=== PATIENT | male | born 1960 | race Caucasian/White ===

== ENCOUNTER 2019-04-16 06:06 | Inpatient (IN) | payer SELFPAY ==
[~2019-04-16] VITALS: Ht 175.3 cm; Wt 68.0 kg
[2019-04-16] VITALS (23 sets, daily range): BP systolic 62–130; BP diastolic 33–112
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
[2019-04-16 06:18] LABS: BASOPHILS # (AUTO) 0.1 10^3/uL (0.0-0.1); BASOPHILS % (AUTO) 1 % (0-10); EOSINOPHILS # (AUTO) 0.1 10^3/uL (0.0-0.3); EOSINOPHILS % (AUTO) 1 % (0-10); HEMATOCRIT 37 % (40-54); HEMOGLOBIN 12.2 G/DL (13.3-17.7); LYMPHOCYTES # (AUTO) 1.2 X 10^3 (1.0-4.0); LYMPHOCYTES % (AUTO) 13 % (12-44); MEAN CORPUSCULAR HEMOGLOBIN 30 PG (25-34); MEAN CORPUSCULAR HGB CONC 33 G/DL (32-36); MEAN CORPUSCULAR VOLUME 91 FL (80-99); MEAN PLATELET VOLUME 9.9 FL (7.4-10.4); MONOCYTES # (AUTO) 0.6 X 10^3 (0.0-1.0); MONOCYTES % (AUTO) 7 % (0-12); NEUTROPHILS # (AUTO) 6.9 X 10^3 (1.8-7.8); NEUTROPHILS % (AUTO) 78 % (42-75); PLATELET COUNT 295 10^3/uL (130-400); WHITE BLOOD COUNT 8.8 10^3/uL (4.3-11.0)
[2019-04-16] MEDS ORDERED: NS IV 1000 ML 1,000 ML IV ONE ×2 (06:23→17:30)
[2019-04-16] MEDS ORDERED: KETOROLAC 30 MG/ML VIAL IVP STA (06:34)
[2019-04-16 06:38] LABS: ALANINE AMINOTRANSFERASE 17 U/L (0-55); ALBUMIN 4.1 GM/DL (3.2-4.5); ALKALINE PHOSPHATASE 58 U/L (40-136); BILIRUBIN,TOTAL 0.3 MG/DL (0.1-1.0); BUN/CREATININE RATIO 12; CALCIUM 9.2 MG/DL (8.5-10.1); CARBON DIOXIDE 21 MMOL/L (21-32); CHLORIDE 110 MMOL/L (98-107); GFR ESTIMATED > 60; GLUCOSE 122 MG/DL (70-105); LIPASE 25 U/L (8-78); POTASSIUM 4.3 MMOL/L (3.6-5.0); SODIUM 140 MMOL/L (135-145); TOTAL PROTEIN 6.8 GM/DL (6.4-8.2)
[2019-04-16] MEDS ORDERED: NITROGLYCERIN 0.4 MG SL TABS BTL 25'S SL PRN (06:45)
[2019-04-16 06:57] LABS: PROTHROMBIN TIME PATIENT 13.3 SEC (12.2-14.7)
--- NOTE | 2019-04-16 07:05 | Diagnostic Imaging Report ---
INDICATION: Chest pain COMPARISON: None available TECHNIQUE: Single frontal radiograph of the chest dated 04/16/2019. FINDINGS: The cardiac silhouette is within normal limits in size. No significant pulmonary vascular congestion. A 6-7 mm rounded nodular density is identified overlying the right lung base. The lungs otherwise appear clear. No pleural effusion. No pneumothorax. No acute osseous abnormality. IMPRESSION: No acute cardiopulmonary abnormality. 6-7 mm nodular density overlying the right lung base. This is of uncertain etiology. This could relate to a nipple shadow, though could also relate to a pulmonary nodule or superimposition of shadows. Recommend nonemergent repeat radiographs of the chest with nipple markers in place for further evaluation. Dictated by: Dictated on workstation # [id number]
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
--- NOTE | 2019-04-16 07:14 | NUR ---
report to bruna lassiter. she knows bolus going and still need ua.
[2019-04-16 08:55] LABS: BILIRUBIN,URINE NEGATIVE (NEGATIVE); CLARITY,URINE CLEAR; COLOR,URINE YELLOW; GLUCOSE, URINE (UA) NEGATIVE (NEGATIVE); KETONES,URINE NEGATIVE (NEGATIVE); LEUKOCYTE ESTERASE ,URINE NEGATIVE (NEGATIVE); NITRITE,URINE NEGATIVE (NEGATIVE); PH,URINE 7 (5-9); PROTEIN,URINE NEGATIVE (NEGATIVE); UROBILINOGEN,URINE NORMAL (NORMAL)
[2019-04-16 09:12] LABS: BACTERIA,URINE NEGATIVE /HPF
[2019-04-16 09:13] LABS: AMPHETAMINE SCREEN, URINE NEGATIVE (NEGATIVE); BENZODIAZEPINES SCREEN URINE NEGATIVE (NEGATIVE); COCAINE SCREEN URINE NEGATIVE (NEGATIVE); METHAMPHETAMINE SCREEN URINE S NEGATIVE (NEGATIVE)
[2019-04-16 09:14] LABS: BARBITURATE SCREEN URINE NEGATIVE (NEGATIVE); CANNABINOID SCREEN, URINE POSITIVE (NEGATIVE); METHADONE STAT NEGATIVE (NEGATIVE); OPIATE SCREEN URINE NEGATIVE (NEGATIVE); OXYCODONE STAT NEGATIVE (NEGATIVE); PROPOXYPHENE STAT NEGATIVE (NEGATIVE); TRICYCLIC ANTIDEPRESSANTS SCRE NEGATIVE (NEGATIVE)
[2019-04-16] MEDS ORDERED: ASPIRIN 81 MG CHEW (CHILDREN'S ASA) PO ONE (10:15)
[2019-04-16] MEDS ORDERED: LIDOCAINE 1% INJ 20 ML 20 ML VIAL ONE (10:44)
[2019-04-16] MEDS ORDERED: HEParin (CATH LAB) 2,000 ML IV ONE (10:44)
--- NOTE | 2019-04-16 10:52 | Cardiology History & Physical ---
HPI-Cardiology Cardiology Consultation Date of Consultation 04/16/19 Date of Admission Time Seen by Provider: 10:50 Indication: chest pain HPI 58 years old gentleman with history of recurrent chest pain, had a normal stress test in November in [place], was in his usual state of health until this morning when he started having chest pain described it as dull achiness in the retrost ernal area. Came into the emergency room, initial workup was negative. Repeat troponin was elevated. He is currently chest pain-free. No palpitation. No syncope or near syncopal episodes. No claudications. PMH-Cardiology Surgeries Yes (heart Catheter) Respiratory No Cardiovascular Yes Neurological No Genitourinary No Gastrointestinal No Musculoskeletal No Endocrine No Cancer No Did You Recieve Any Treatments: No Social History Patient Social History Marrital Status: Employed/Student: unemployed Alcohol Use: Denies Use Recreational Drug Use: Yes (" marijuana") Recent Foreign Travel: No Contact w/other who traveled: No Recent Infectious Disease Expo: No Family Hx Significant Family History: Heart Disease (both mother and father) Other Noncontributory ROS-Cardiology Review of Systems General: No Chills, No Night Sweats, No Fatigue, No Malaise, No Appetite HEENT: No Head Aches, No Visual Changes, No Eye Pain, No Ear Pain, No Dysphasia, No Sinus Congestion, No Post Nasal Drip, No Sore Throat Pulmonary: No Dyspnea, No Cough, No Pleuritic Chest Pain Cardiovascular: Chest Pain; No: Palpitations, Orthopnea, Paroxysmal Noc. Dyspnea, Edema, Lt Headedness Gastrointestinal: No: Nausea, Vomiting, Abdominal Pain, Diarrhea, Constipation, Melena, Hematochezia Genitourinary: No Dysuria, No Frequency, No Incontinence, No Hematuria, No Retention Musculoskeletal: No: neck pain, shoulder pain, arm pain, back pain, hand pain, leg pain, foot pain Neurological: No: Weakness, Numbness, Incoordination, Change in speech, Confusion, Seizures Home Medications & Allergies Allergies: Coded Allergies: No Known Drug Allergies (Unverified , 04/16/19) Home Medication List Reviewed: Yes Exam-Cardiology Vital Signs Vital Signs Date Time Temp Pulse Resp B/P (MAP) Pulse Ox O2 Delivery O2 Flow Rate FiO2 04/16/19 06:10 98.4 104 20 141/91 (108) Exam General Appearance: Alert, Oriented X3, Cooperative, No Acute Distress HEENT: Atraumatic, PERRLA Respiratory: Clear to Auscultation, Normal Air Movement Cardiovascular: Regular Rate, Normal S1, Normal S2, No Murmurs Abdominal: Normal Bowel Sounds, Soft, No Tenderness, No Hepatosplenomegaly, No Masses Extremities: No Clubbing, No Cyanosis, No Edema, Normal Pulses, No Tenderness/Swelling Skin: No Rashes, No Breakdown, No Significant Lesion Neuro: Normal Gait, Normal Speech, Strength at 5/5 X4 Ext, Normal Tone, Sensation Intact Psych/Mental Status: Mental Status NL, Mood NL Results Labs Labs Laboratory Tests 04/16/19 06:05: White Blood Count 8.8, Red Blood Count 4.04L, Hemoglobin 12.2L, Hematocrit 37L, Mean Corpuscular Volume 91, Mean Corpuscular Hemoglobin 30, Mean Corpuscular Hemoglobin Concent 33, Red Cell Distribution Width 14.0, Platelet Count 295, Mean Platelet Volume 9.9, Neutrophils (%) (Auto) 78H, Lymphocytes (%) (Auto) 13, Monocytes (%) (Auto) 7, Eosinophils (%) (Auto) 1, Basophils (%) (Auto) 1, Neutrophils # (Auto) 6.9, Lymphocytes # (Auto) 1.2, Monocytes # (Auto) 0.6, Eosinophils # (Auto) 0.1, Basophils # (Auto) 0.1, Prothrombin Time 13.3, INR Comment 1.0, Activated Partial Thromboplast Time 31, D-Dimer 0.33, Sodium Level 140, Potassium Level 4.3, Chloride Level 110H, Carbon Dioxide Level 21, Anion Gap 9, Blood Urea Nitrogen 12, Creatinine 1.00, Estimat Glomerular Filtration Rate > 60, BUN/Creatinine Ratio 12, Glucose Level 122H, Calcium Level 9.2, Corrected Calcium 9.1, Magnesium Level 3.0H, Total Bilirubin 0.3, Aspartate Amino Transf (AST/SGOT) 27, Alanine Aminotransferase (ALT/SGPT) 17, Alkaline Phosphatase 58, Myoglobin 97.8H, Troponin I < 0.028, Total Protein 6.8, Albumin 4.1, Lipase 25, Serum Alcohol < 10 04/16/19 08:50: Urine Color YELLOW, Urine Clarity CLEAR, Urine pH 7, Urine Specific [place] 1.010L, Urine Protein NEGATIVE, Urine Glucose (UA) NEGATIVE, Urine Ketones NEGATIVE, Urine Nitrite NEGATIVE, Urine Bilirubin NEGATIVE, Urine Urobilinogen NORMAL, Urine Leukocyte Esterase NEGATIVE, Urine RBC (Auto) NEGATIVE, Urine RBC NONE, Urine WBC NONE, Urine Crystals NONE, Urine Bacteria NEGATIVE, Urine Casts NONE, Urine Mucus NEGATIVE, Urine Culture Indicated NO, Urine Opiates Screen NEGATIVE, Urine Oxycodone Screen NEGATIVE, Urine Methadone Screen NEGATIVE, Urine Propoxyphene Screen NEGATIVE, Urine Barbiturates Screen NEGATIVE, Ur Tricyclic Antidepressants Screen NEGATIVE, Urine Phencyclidine Screen NEGATIVE, Urine Amphetamines Screen NEGATIVE, Urine Methamphetamines Screen NEGATIVE, Urine Benzodiazepines Screen NEGATIVE, Urine Cocaine Screen NEGATIVE, Urine Cannabinoids Screen POSITIVEH 04/16/19 09:20: Myoglobin 153.0H, Troponin I 0.327*H, Total Creatine Kinase 153 A/P-Cardiology Admission Diagnosis Unstable angina Non-ST elevation myocardial infarction Coronary artery disease Admission Status: Observation Assessment/Plan Unstable angina, had active chest pain, responded to nitroglycerin, having elevation troponin level. Planning to proceed with cardiac catheterization. Non-ST elevation myocardial infarction, elevation in troponin level. Reporting having a stress test done in November 2018 which was negative. Discussed with him the management per recommended cardiac catheterization possible PTCA Coronary artery disease, planning to proceed with cardiac catheterization next History of marijuana use. Educated on avoiding illicit drug use. History of valvular heart disease. Was on Inderal as a child until he was 21 years old. Clinical Quality Measures AMI/AHF: ASA po Prior to arrival: Yes ALVARO SMYTH MD April 16, 2019 10:52
--- NOTE | 2019-04-16 10:53 | Cardiac Procedure Note-CS/ASA ---
Pre-Procedure Note Pre-Op Procedure Note H&P Reviewed The H&P was reviewed, patient examined and no changes noted. Date H&P Reviewed: April 16, 2019 Time H&P Reviewed: 10:53 Conscious Sedation Pre-Proced Time 10:53 ASA Score 3 For ASA 3 and 4: Consider anesthesia and medical clearance. Also, for patients with a history of failed moderate sedation consider anesthesia. Airway Lungs Heart ASA score ASA 1: a normal healthy patient ASA 2: a patient with a mild systemic disease (mid diabetes, controlled hypertension, obesity x ASA 3: a patient with a severe systemic disease that limits activity (angina, COPD, prior Myocardial infarction) ASA 4: a patient with an incapacitating disease that is a constant threat to life (CHF, renal failure) ASA 5: a moribund patient not expected to survive 24 hrs. (ruptured aneurysm) ASA 6: a declared brain- patient whose organs are being harvested. For emergent operations, add the letter E after the classification Mallampati Classification Grade 3 Sedation Plan Analgesia, Amnesia, Plan communicated to team members, Discussed options with patient/fam, Discussed risks with patient/fam The patient is an appropriate candidate to undergo the planned procedure, sedation, and anesthesia. The patient immediately re-assessed prior to indication. ALVARO SMYTH MD April 16, 2019 10:53
[2019-04-16] MEDS ORDERED: NS IV 1000 ML 1,000 ML ONE (10:56)
[2019-04-16] MEDS ORDERED: NS IV 1000 ML 1,000 ML IV SCH (11:00)
--- NOTE | 2019-04-16 11:05 | NUR ---
[employer] in pt's room for echo.
--- NOTE | 2019-04-16 11:20 | NUR ---
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
[2019-04-16] MEDS ORDERED: fentaNYL INJECTION 100 MCG/2 ML AMP ONE (11:22)
[2019-04-16] MEDS ORDERED: MIDAZOLAM 5 MG/5 ML (VERSED) VIAL ONE (11:22)
[2019-04-16] MEDS ORDERED: HEParin 1000 UNIT/ML (10ML VIAL) FOR BOLUS ONE (11:22)
[2019-04-16] MEDS ORDERED: EPTIFIBATIDE BOLUS 20 ML IV ONE (11:52)
[2019-04-16] MEDS ORDERED: NITRO DRIP 25000 MCG/D5W 250 ML IV ONE (12:00)
[2019-04-16] MEDS ORDERED: ASPIRIN 325 MG (5 GR) TABLET ONE (12:27)
[2019-04-16] MEDS ORDERED: CLOPIDOGREL 300 MG (PLAVIX) TABLET PO ONE (12:28)
[2019-04-16] MEDS ORDERED: PATIENT MAY USE OWN MEDS, ALL PO SCH (12:45)
[2019-04-16] MEDS ORDERED: PANTOPRAZOLE 40 MG (PROTONIX) TAB PO NR (12:45)
--- NOTE | 2019-04-16 12:45 | Cardiac Cath Report ---
Cardiac Cath Report Physician (s)/Seed Technician (s) Physician ALVARO SMYTH MD Pre-Procedure Diagnosis Pre-Procedure Diagnosis: non-ST elevation myocardial infarction Post-Procedure Note Procedure Start Date: April 16, 2019 Name of Procedure: Left heart catheterization Left ventriculogram Emergency stenting with THANG to the circumflex artery THANG stenting to the LAD Findings/Procedure Note PROCEDURE NOTE: 58 years old gentleman with recurrent chest pain, admitted through the emergency room with acute non-ST elevation myocardial infarction, we proceeded with emergency cardiac catheterization taken directly to the catheter lab. After explaining the procedure to the patient, all pros and cons were explained, all questions were answered. The patient signed the consent and then he was placed on the cardiac catheterization laboratory. Groin was prepped SL fashion local anesthesia was used. Sheath placed in the right femoral artery. Tavares right and left catheter were used to access the coronary system. Pigtail was used to access the left ventricular cavity. Left ventriculogram was done Patient was given 5000 units of heparin, double bolus Integrilin, FL guide was advanced to the left carotid system, patient has haziness in the proximal circumflex artery with severe stenosis, BMW wire was advanced through the circumflex artery and primary stenting using a Xience Jeny 3.0 x 18 mm was placed carefully then postdilated with 3.5 time 8 mm balloon with excellent results. Attempted to cross the LAD lesion with a BMW wire, had difficulty. I advanced a whisper extra support wire, unable to advance in the LAD I parted in the diagonal artery and used the BMW wire to cross to the LAD then removed the whisper wire, primary stenting using 2.7518 mm expanded to 2.9 mm with excellent results no residual stenosis. At the end of the procedure the sheath was removed. Closure device was used FINDINGS: Hemodynamics LV 120/7, end-diastolic pressure of 7 Aorta 119/71 mean of 92 ANATOMY: Left Main has no obstructive disease Left Anterior Descending has severe stenosis at the midportion involving the ostium of a large diagonal artery, calm 6 intervention with deployment of a Xience Jeny drug-eluting stent 2.75 x 18 mm expanded to 2.9 mm with excellent results Left Circumflex haziness and severe stenosis in the proximal circumflex artery followed by aneurysmal dilatation, successful primary stenting using Xience Jeny 3.018 mm expanded to 3.5 mm distally with excellent results Right Coronory Artery is small to moderate in size with no obstructive disease LV Gram is normal in size with normal contraction. Estimated ejection fraction 60 percent CONCLUSION: 1. Acute non-ST elevation myocardial infarction with haziness and severe stenosis in the proximal circumflex artery successful emergency angioplasty with stent deployment using Xience Jeny 3.0 x 18 mm expanded to 3.5 mm with excellent results 2. Severe stenosis in the mid LAD involving the ostium of a large diagonal artery, complex intervention with successful stenting using a Xience Jeny 2.75 time 18 mm expanded to 2.9 mm with excellent results 3. Mild disease in the right coronary artery 4. Normal left ventricular size and systolic function estimated ejection fraction 60 percent DISCUSSION AND RECOMMENDATION: Patient was started on aspirin and Plavix. Lipitor and Toprol, will be admitted to the intensive care unit and monitor Anesthesia Type: Conscious Sedation Estimated blood loss (mL): 35 ml Contrast Amount: 200 ml Total Radiation Dose: 352 mGy Post-Procedure Diagnosis Post-operative diagnosis: Non-ST elevation myocardial infarction Coronary artery disease Hyperlipidemia Tobaccoism ALVARO SMYTH MD April 16, 2019 12:45 pm
--- NOTE | 2019-04-16 13:26 | NUR ---
PATIENT STATES HE DOES NOT CURRENTLY TAKE ANY MEDICATION, PRESCRIPTION OR OTC.
[2019-04-16] MEDS ORDERED: morphine INJ 4 MG/ML 1 ML (VIAL/SYRINGE) IV PRN (13:30)
[2019-04-16] MEDS: NS IV 1000 ML 1,000 ML IV SCH ×2 (15:25→22:36)
[2019-04-16] MEDS ORDERED: NS 1000 ML IV BAG IV ONE (17:15)
--- NOTE | 2019-04-16 17:15 | NUR ---
1700 PT ASSISTED UP IN BED STATED " I FEEL DIZZY AND LIGHT HEADED, PT REQUESTED A DRINK OF TEA, PT THEN STATED I STILL FEEL DIZZY AND THIS RN LAID PT DOWN, PT NEVER MADE IT UP OOB. RIGHT GROIN NOTED TO HAVE HEMATOMA PRESSURE BEING APPLIED BY RN'S X 2. BP NOTED TO BE LOW AT 62/33 PULSE 40. 2 ADDITIONAL RN'S ON FLOOR TO ROOM AND CRASH CART PULLED. ATROPINE 1 AMP GIVE IVP AT 1705 AND RAPID RESPONSE CALLED. PT AWAKENS TO VERBAL STIMULI AT THIS TIME DR SMYTH NOTIFIED AND NEW ORDERS RECEIVED TO GIVE 2 UNITS PRBC'S AND 2 LITER IVF 1720 PT TALKING WITH STAFF, HEART RATE 102 BP 115/77. RN FROM TOOL AND MACHINE MAINTAINER IN ROOM AND APPLYING PRESSURE.
[2019-04-16 18:41] LABS: HEMOGLOBIN 10.2 G/DL (13.3-17.7)
--- NOTE | 2019-04-16 20:00 | NUR ---
DR SMYTH HERE TO SEE PT, OK TO RAISE HEAD 30 DEGREES AND LET HIM EAT. BEDREST TO CONT UNTIL BLOOD IS TRANSFUSED
[2019-04-16] MEDS ORDERED: ATORVASTATIN 80 MG (LIPITOR) TABLET PO SCH (21:00)
[2019-04-17] VITALS (7 sets, daily range): BP systolic 104–125; BP diastolic 61–91
[2019-04-17 03:47] LABS: HEMOGLOBIN 11.7 G/DL (13.3-17.7); MEAN PLATELET VOLUME 9.7 FL (7.4-10.4); RED CELL DISTRIBUTION WIDTH 14.6 % (10.0-14.5); WHITE BLOOD COUNT 8.8 10^3/uL (4.3-11.0)
[2019-04-17 04:07] LABS: BUN/CREATININE RATIO 13; CALCIUM 8.8 MG/DL (8.5-10.1); CARBON DIOXIDE 21 MMOL/L (21-32); CHLORIDE 112 MMOL/L (98-107); CHOLESTEROL 149 MG/DL (< 200); CREATININE SERUM 0.75 MG/DL (0.60-1.30); GFR ESTIMATED > 60; GLUCOSE 114 MG/DL (70-105); HDL CHOLESTEROL 37 MG/DL (40-60); POTASSIUM 3.8 MMOL/L (3.6-5.0); SODIUM 143 MMOL/L (135-145); TRIGLYCERIDES 109 MG/DL (<150); VLDL CHOLESTEROL 22 MG/DL (5-40)
[2019-04-17] MEDS ORDERED: METO-387 PO (08:25)
[2019-04-17] MEDS ORDERED: CLOP75TA28 PO (08:25)
[2019-04-17] MEDS ORDERED: ATOR10TA PO (08:25)
[2019-04-17] MEDS ORDERED: ASPI-983 PO (08:25)
--- NOTE | 2019-04-17 08:26 | Discharge Inst-Post CATH ---
Discharge Inst-CATH/EP Post Cardiac Cath/EP D/C Inst Follow Up/Plan Appointment with Dr. Ray's office in 2-4 weeks <b>CARDIAC CATH/EP PROCEDURE DISCHARGE INSTRUCTIONS</b> Cardiac Rehab Please be expecting a follow up call from Cardiac Rehab within in one week. ACTIVITY * Go Home directly and rest. * Limit activity of the leg (or wrist if it was used) for 7 days including aerobics, swimming, jogging, bicycling, etc. * Restrict stair-climbing for 7 days if possible, if not, climb up with your non-cath leg, then bring together on the same step. * Avoid lifting, pushing, pulling or excessive movement of the affected extremity for 7 days. * Customary sexual activity may be resumed after 2 days-use caution not to use a position that strains or causes pain to the affected extremity. * No driving for 24 hours. * NO SMOKING. * Avoid straining for bowel movements for 7 days. * Gentle walking on level ground is allowed. * Returning to work will depend on the type of procedure and the results. Your doctor will discuss this with you. CALL YOUR DOCTOR FOR ANY OF THE FOLLOWING: *If bleeding from the puncture site occurs- Apply gentle pressure to site with clean cloth and call your doctor or EMS. * If a knot or lump forms under the skin, increases in size, or causes pain. * If bruising appears to be worsening or moving further down your leg instead of disappearing. * Temperature above 101 F. CARE OF YOUR GROIN INCISION; * Bruising or purple discoloration of the skin near the puncture site is common. * You may shower only, no bathtub bathing for 5 days. Be careful to avoid slipping as your leg may feel stiff. * If a closure device was used on your femoral artery, please see the attached guide regarding care of the device and your leg. * Leave dressing on FOR 24 hours. CARE OF YOUR WRIST INCISION; * Bruising or purple discoloration of the skin near the puncture site is common. * You may shower. * DO NOT submerge wrist. * Leave dressing on FOR 24 hours. ALVARO RAY MD April 17, 2019 08:26
--- NOTE | 2019-04-17 08:30 | Cardiology Discharge Summary ---
Diagnosis/Chief Complaint Date of Admission April 16, 2019 at 10:34 Date of Discharge April 17, 2019 Admission Diagnosis Unstable angina Non-ST elevation myocardial infarction Coronary artery disease Discharge Diagnosis Non-ST elevation myocardial infarction Coronary artery disease Hypertension Hyperlipidemia Chief Complaint/HPI Chief Complaint/HPI 58 years old gentleman admitted with acute chest pain, had elevation in troponin, decided to take him for emergency cardiac catheterization. He is currently chest pain-free. Denied any shortness of breath. Denied any palpitation. Discharge Summary Hospital Course Was the Problem List Reviewed?: Yes Hospital Course Unstable angina, had active chest pain, responded to nitroglycerin, proceeded with cardiac catheterization Non-ST elevation myocardial infarction, elevation in troponin level. Reporting having a stress test done in November 2018 which was negative, emergency cardiac catheterization with stenting to the LAD and circumflex was done. Results: 1. Acute non-ST elevation myocardial infarction with haziness and severe stenosis in the proximal circumflex artery successful emergency angioplasty with stent deployment using Xience Jeny 3.0 x 18 mm expanded to 3.5 mm with excellent results 2. Severe stenosis in the mid LAD involving the ostium of a large diagonal artery, complex intervention with successful stenting using a Xience Jeny 2.75 time 18 mm expanded to 2.9 mm with excellent results 3. Mild disease in the right coronary artery 4. Normal left ventricular size and systolic function estimated ejection fraction 60 percent Coronary artery disease, we had a long discussion, explained the importance of compliance with medication, taking aspirin and Plavix and that his life depend on these medication due to the stents that were placed History of marijuana use. Educated on avoiding illicit drug use. History of valvular heart disease. Was on Inderal as a child until he was 21 years old. Labs Laboratory Tests 04/16/19 06:05: Red Blood Count 4.04L, Hemoglobin 12.2L, Hematocrit 37L, Neutrophils (%) (Auto) 78H, Chloride Level 110H, Glucose Level 122H, Magnesium Level 3.0H, Myoglobin 97.8H 04/16/19 08:50: Urine Specific [place] 1.010L, Urine Cannabinoids Screen POSITIVEH 04/16/19 09:20: Myoglobin 153.0H, Troponin I 0.327*H 04/16/19 17:50: Hemoglobin 10.2L, Hematocrit 31L, Troponin I 3.485*H 04/17/19 03:38: Red Blood Count 3.85L, Hemoglobin 11.7L, Hematocrit 35L, Red Cell Distribution Width 14.6H, Chloride Level 112H, Glucose Level 114H, Troponin I 2.125*H, HDL Cholesterol 37L Procedures None. Discharge Physical Examination Allergies: Coded Allergies: No Known Drug Allergies (Unverified , 04/16/19) Vitals & I&Os Vital Signs Date Time Temp Pulse Resp B/P (MAP) Pulse Ox O2 Delivery O2 Flow Rate FiO2 04/17/19 08:00 99 Room Air 04/17/19 06:54 76 04/17/19 06:00 13 113/74 (87) 04/17/19 04:00 2.00 04/17/19 04:00 97.9 General Appearance: Alert, Oriented X3, Cooperative, No Acute Distress HEENT: Atraumatic, PERRLA Respiratory: Clear to Auscultation, Normal Air Movement Cardiovascular: Regular Rate, Normal S1, Normal S2, No Murmurs Abdominal: Normal Bowel Sounds, Soft, No Tenderness, No Hepatosplenomegaly, No Masses Extremities: No Clubbing, No Cyanosis, No Edema, Normal Pulses, No Tenderness/Swelling Skin: No Rashes, No Breakdown, No Significant Lesion Neuro: Normal Gait, Normal Speech, Strength at 5/5 X4 Ext, Normal Tone, Sensation Intact, Cranial Nerves 3-12 NL, Reflexes 2+ Psych/Mental Status: Mental Status NL, Mood NL Discharge Home Medications Reviewed and agree with Discharge Medication list on patient's Discharge Instruction sheet Instructions to Patient/Family Please see electronic discharge instructions given to patient. Clinical Quality Measures Admission Status Admission Status: Observation AMI/AHF: ASA po Prior to arrival: Yes ALVARO SMYTH MD April 17, 2019 08:30
[2019-04-17] MEDS ORDERED: ASPIRIN E.C. 81 MG (ECOTRIN) TAB PO SCH ×2 (09:00)
[2019-04-17] MEDS ORDERED: CLOPIDOGREL 75 MG (PLAVIX) TABLET PO SCH (09:00)
[2019-04-17] MEDS ORDERED: PANTOPRAZOLE 40 MG (PROTONIX) TAB PO SCH (09:00)
== END 2019-04-17 09:35 | disposition home or self-care (01) | DRG 247 ==
LOC: ER 06:08 → ICU 10:34
PROVIDERS: ADMIT Internal Medicine Cardiovascular Disease; ATTEND Internal Medicine Cardiovascular Disease
PROC: 027135Z Dilation of Coronary Artery, Two Arteries with Two Drug-eluting Intraluminal Devices, Percutaneous Approach (ICD-10-PCS; principal; 2019-04-16)
PROC: 4A023N7 Measurement of Cardiac Sampling and Pressure, Left Heart, Percutaneous Approach (ICD-10-PCS; 2019-04-16)
PROC: B2111ZZ Fluoroscopy of Multiple Coronary Arteries using Low Osmolar Contrast (ICD-10-PCS; 2019-04-16)
PROC: B2151ZZ Fluoroscopy of Left Heart using Low Osmolar Contrast (ICD-10-PCS; 2019-04-16)
DX: I21.4 Non-ST elevation (NSTEMI) myocardial infarction (principal); I25.119 Atherosclerotic heart disease of native coronary artery with unspecified angina pectoris; E78.5 Hyperlipidemia, unspecified; I38 Endocarditis, valve unspecified; F12.90 Cannabis use, unspecified, uncomplicated; I25.2 Old myocardial infarction; F17.290 Nicotine dependence, other tobacco product, uncomplicated
CPT/HCPCS: 36415; 71045; 80048; 80053; 80061; 80306; 80320; 81000; 82550; 83690; 83735; 83874; 84484; 85014; 85018; 85025; 85027; 85379; 85610; 85730; 86850; 86900; 86901; 86920; 93005; 93306; 93458

== ENCOUNTER 2019-07-17 13:28 | Emergency (ER) | payer SELFPAY | END 2019-07-17 16:20 | disposition home or self-care (01) | LOC: ER 13:28 ==

== ENCOUNTER → 2019-07-21 | Outpatient (CLI) | payer SELFPAY ==
[~2019-07-21] MED LIST: ASPI-983 PO; ATOR10TA PO; CLOP75TA28 PO; METO-387 PO
== END ==
LOC: CARD 14:13
PROVIDERS: ATTEND Physician Assistant
DX: I25.10 Atherosclerotic heart disease of native coronary artery without angina pectoris (principal); I10 Essential (primary) hypertension; E78.2 Mixed hyperlipidemia

== ENCOUNTER 2019-08-21 17:32 | Inpatient (IN) | payer SELFPAY ==
[~2019-08-21] VITALS: Ht 175.2 cm; Wt 65.3 kg
[2019-08-21] MEDS ORDERED: LORazepam INJ 2 MG/ML (ATIVAN) VIAL ONE (17:34)
[2019-08-21] MEDS ORDERED: LACTATED RINGERS 1,000 ML IV ONE (17:35)
--- NOTE | 2019-08-21 17:41 | ED Chest Pain ---
General Chief Complaint: Chest Pain Stated Complaint: POSS HEART ATTACK Source: patient Exam Limitations: no limitations History of Present Illness Date Seen by Provider: Aug 21, 2019 Time Seen by Provider: 17:40 Initial Comments To ER with reports of chest tightness and shortness of breath onset about 5 PM, just prior to this he states he "got worked up and just about kicked some ass" precipitated his chest pain, he is hyperventilating on arrival to ER tremulous. He does have a history of coronary stenting in March of this year placed here by Dr. Ray. He does not smoke, he does vape. Denies alcohol use, former alcoholic having quit in 2000. His only medications are a torus statin 10 mg daily, Plavix 75 mg daily, baby aspirin daily, metoprolol extended release 25 mg daily. Had an unremarkable stress echo last month. Does not have a primary care provider, only sees Dr. Ray. 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 SL BEADING MACHINE OPERATOR: No Associated Symptoms: denies symptoms Allergies and Home Medications Allergies Coded Allergies: morphine (Verified Allergy, Mild, 07/17/19) pt states it makes him vomit Home Medications Aspirin 81 Mg Tablet.dr, 81 MG PO DAILY Prescribed by: ALVARO RAY on 04/17/19 08 Atorvastatin Calcium 10 Mg Tablet, 10 MG PO DAILY Prescribed by: ALVARO RAY on 04/17/19 0825 Clopidogrel Bisulfate 75 Mg Tablet, 75 MG PO DAILY Prescribed by: ALVARO RAY on 04/17/19 08 Metoprolol Succinate 25 Mg Tab.er.24h, 25 MG PO DAILY Prescribed by: ALVARO RAY on 04/17/19 0825 Patient Home Medication List Home Medication List Reviewed: Yes Review of Systems Review of Systems Constitutional: see HPI EENTM: No Symptoms Reported Respiratory: See HPI, Shortness of Air Cardiovascular: See HPI, Chest Pain Gastrointestinal: See HPI Genitourinary: No Symptoms Reported Musculoskeletal: no symptoms reported Skin: no symptoms reported Psychiatric/Neurological: No Symptoms Reported Endocrine: No Symptoms Reported Hematologic/Lymphatic: No Symptoms Reported Past Ovbnpvw-Lkbzlu-Soufxu Hx Patient Social History Alcohol Use: Denies Use Recreational Drug Use: Yes Drug of Choice: marijuana Smoking Status: Current Everyday Smoker Type Used: Electronic/Vapor 2nd Hand Smoke Exposure: No Recent Foreign Travel: No Contact w/Someone Who Travel: No Recent Hopitalizations: No Past Medical History Surgeries: Yes Appendectomy Respiratory: No Cardiac: Yes Coronary Artery Disease, Heart Attack Neurological: No Genitourinary: No Gastrointestinal: No Musculoskeletal: No Endocrine: No HEENT: No Cancer: No Did You Recieve Any Treatments: No Psychosocial: No Integumentary: No Blood Disorders: No Adverse Reaction/Blood Tranf: No Family Medical History Heart Disease Physical Exam Vital Signs Vital Signs - First Documented 08/21/19 17:33 Temp 37.3 Pulse 112 Resp 24 B/P (MAP) 131/114 (120) Pulse Ox 100 O2 Delivery Room Air Capillary Refill : Less Than 3 Seconds Height, Weight, BMI Height: 5'9.00" Weight: 150lbs. oz. 68.960464on; 22.00 BMI Method:Stated General Appearance: WD/WN, Anxious, Other (very tremulous, able to control these when asked to) Neck: Full Range of Motion, Normal Inspection Respiratory: No Accessory Muscle Use, No Respiratory Distress Cardiovascular: Normal Peripheral Pulses, Tachycardia Gastrointestinal: Normal Bowel Sounds, Non Tender, Soft Extremity: Normal Capillary Refill, Normal Inspection Neurologic/Psychiatric: Alert, Oriented x3 Skin: Normal Color, Warm/Dry Progress/Results/Core Measures Results/Orders Lab Results Laboratory Tests Test 08/21/19 17:35 08/21/19 17:55 08/21/19 19:32 Range/Units White Blood Count 8.4 4.3-11.0 10^3/uL Red Blood Count 4.61 4.35-5.85 10^6/uL Hemoglobin 14.0 13.3-17.7 G/DL Hematocrit 42 40-54 % Mean Corpuscular Volume 91 80-99 FL Mean Corpuscular Hemoglobin 30 25-34 PG Mean Corpuscular Hemoglobin Concent 33 32-36 G/DL Red Cell Distribution Width 12.9 10.0-14.5 % Platelet Count 287 130-400 10^3/uL Mean Platelet Volume 9.1 7.4-10.4 FL Neutrophils (%) (Auto) 65 42-75 % Lymphocytes (%) (Auto) 24 12-44 % Monocytes (%) (Auto) 9 0-12 % Eosinophils (%) (Auto) 1 0-10 % Basophils (%) (Auto) 1 0-10 % Neutrophils # (Auto) 5.5 1.8-7.8 X 10^3 Lymphocytes # (Auto) 2.0 1.0-4.0 X 10^3 Monocytes # (Auto) 0.8 0.0-1.0 X 10^3 Eosinophils # (Auto) 0.1 0.0-0.3 10^3/uL Basophils # (Auto) 0.1 0.0-0.1 10^3/uL Prothrombin Time 12.4 12.2-14.7 SEC INR Comment 0.9 0.8-1.4 Activated Partial Thromboplast Time 28 24-35 SEC D-Dimer 0.38 0.00-0.49 UG/ML Sodium Level 143 135-145 MMOL/L Potassium Level 3.6 3.6-5.0 MMOL/L Chloride Level 110 H 98-107 MMOL/L Carbon Dioxide Level 23 21-32 MMOL/L Anion Gap 10 5-14 MMOL/L Blood Urea Nitrogen 10 7-18 MG/DL Creatinine 1.00 0.60-1.30 MG/DL Estimat Glomerular Filtration Rate > 60 BUN/Creatinine Ratio 10 Glucose Level 95 70-105 MG/DL Calcium Level 10.1 8.5-10.1 MG/DL Corrected Calcium 9.7 8.5-10.1 MG/DL Magnesium Level 2.2 1.6-2.4 MG/DL Total Bilirubin 0.5 0.1-1.0 MG/DL Aspartate Amino Transf (AST/SGOT) 22 5-34 U/L Alanine Aminotransferase (ALT/SGPT) 17 0-55 U/L Alkaline Phosphatase 84 40-136 U/L Myoglobin 117.7 H 10.0-92.0 NG/ML Troponin I < 0.028 0.055 H <0.028 NG/ML Total Protein 7.3 6.4-8.2 GM/DL Albumin 4.5 3.2-4.5 GM/DL Urine Color YELLOW Urine Clarity CLEAR Urine pH 8 5-9 Urine Specific [place] 1.010 L 1.016-1.022 Urine Protein NEGATIVE NEGATIVE Urine Glucose (UA) NEGATIVE NEGATIVE Urine Ketones NEGATIVE NEGATIVE Urine Nitrite NEGATIVE NEGATIVE Urine Bilirubin NEGATIVE NEGATIVE Urine Urobilinogen NORMAL NORMAL MG/DL Urine Leukocyte Esterase NEGATIVE NEGATIVE Urine RBC (Auto) NEGATIVE NEGATIVE Urine RBC NONE /HPF Urine WBC NONE /HPF Urine Crystals NONE /LPF Urine Bacteria NEGATIVE /HPF Urine Casts NONE /LPF Urine Mucus NEGATIVE /LPF Urine Culture Indicated NO Urine Opiates Screen NEGATIVE NEGATIVE Urine Oxycodone Screen NEGATIVE NEGATIVE Urine Methadone Screen NEGATIVE NEGATIVE Urine Propoxyphene Screen NEGATIVE NEGATIVE Urine Barbiturates Screen NEGATIVE NEGATIVE Ur Tricyclic Antidepressants Screen NEGATIVE NEGATIVE Urine Phencyclidine Screen NEGATIVE NEGATIVE Urine Amphetamines Screen NEGATIVE NEGATIVE Urine Methamphetamines Screen NEGATIVE NEGATIVE Urine Benzodiazepines Screen NEGATIVE NEGATIVE Urine Cocaine Screen NEGATIVE NEGATIVE Urine Cannabinoids Screen POSITIVE H NEGATIVE My Orders Orders - MICHAEL LUCAS APRN Drug Screen Stat (Urine) (08/21/19 17:54) Ua Culture If Indicated (08/21/19 17:54) Troponin I (08/21/19 19:13) Ekg Tracing (08/21/19 19:13) Ticagrelor Tablet (Brilinta Tablet) (08/21/19 20:30) Enoxaparin Injection (Lovenox Injection) (08/21/19 20:30) Medications Given in ED Current Medications Medications Dose Ordered Sig/Richie Route Start Time Stop Time Status Last Admin Dose Admin Aspirin 324 mg ONCE ONCE PO 08/21/19 17:45 08/21/19 17:46 DC 08/21/19 17:52 324 MG Lactated Ringer's 1,000 ml @ 0 mls/hr Q0M ONCE IV 08/21/19 17:35 08/21/19 17:38 DC 08/21/19 17:35 1,000 MLS/HR Lorazepam 1 mg ONCE ONCE IVP 08/21/19 17:45 08/21/19 17:46 DC 08/21/19 17:23 1 MG Vital Signs/I&O 08/21/19 17:33 Temp 37.3 Pulse 112 Resp 24 B/P (MAP) 131/114 (120) Pulse Ox 100 O2 Delivery Room Air Departure Communication (Admissions) Time/Spoke to Admitting Phy: 20:[address] Jason agrees to admit Time/Spoke to Consulting Phy: 20:[address] Cabrera, recommends Brilinta 180 mg, Lovenox treatment dose, 2-D echo in a.m., nothing by mouth after midnight in case of need for cardiac catheterization tomorrow. Patient informed of this and agreeable. Impression Primary Impression: NSTEMI (non-ST elevated myocardial infarction) Disposition: 09 ADMITTED INPATIENT Condition: Stable Admissions Decision to Admit Reason: Admit from ER (General) Decision to Admit/Date: Aug 21, 2019 Time/Decision to Admit Time: 20:25 Departure-Patient Inst. Referrals: NO,LOCAL PHYSICIAN (PCP/Family) Primary Care Physician MICHAEL LUCAS APRN Aug 21, 2019 17:41
[2019-08-21 17:44] LABS: BASOPHILS # (AUTO) 0.1 10^3/uL (0.0-0.1); BASOPHILS % (AUTO) 1 % (0-10); EOSINOPHILS # (AUTO) 0.1 10^3/uL (0.0-0.3); EOSINOPHILS % (AUTO) 1 % (0-10); HEMATOCRIT 42 % (40-54); LYMPHOCYTES % (AUTO) 24 % (12-44); MEAN CORPUSCULAR HEMOGLOBIN 30 PG (25-34); MEAN CORPUSCULAR HGB CONC 33 G/DL (32-36); MEAN CORPUSCULAR VOLUME 91 FL (80-99); MEAN PLATELET VOLUME 9.1 FL (7.4-10.4); MONOCYTES # (AUTO) 0.8 X 10^3 (0.0-1.0); MONOCYTES % (AUTO) 9 % (0-12); NEUTROPHILS # (AUTO) 5.5 X 10^3 (1.8-7.8); NEUTROPHILS % (AUTO) 65 % (42-75); PLATELET COUNT 287 10^3/uL (130-400); RED CELL DISTRIBUTION WIDTH 12.9 % (10.0-14.5); WHITE BLOOD COUNT 8.4 10^3/uL (4.3-11.0)
[2019-08-21] MEDS ORDERED: LORazepam INJ 2 MG/ML (ATIVAN) VIAL IVP ONE (17:45)
[2019-08-21] MEDS ORDERED: ASPIRIN 81 MG CHEW (CHILDREN'S ASA) PO ONE (17:45)
[2019-08-21 17:55] LABS: INR 0.9 (0.8-1.4); PROTHROMBIN TIME PATIENT 12.4 SEC (12.2-14.7)
[2019-08-21 18:04] LABS: ALANINE AMINOTRANSFERASE 17 U/L (0-55); ALBUMIN 4.5 GM/DL (3.2-4.5); ALKALINE PHOSPHATASE 84 U/L (40-136); BILIRUBIN,TOTAL 0.5 MG/DL (0.1-1.0); BUN/CREATININE RATIO 10; CALCIUM 10.1 MG/DL (8.5-10.1); CARBON DIOXIDE 23 MMOL/L (21-32); CHLORIDE 110 MMOL/L (98-107); GFR ESTIMATED > 60; GLUCOSE 95 MG/DL (70-105); MAGNESIUM 2.2 MG/DL (1.6-2.4); POTASSIUM 3.6 MMOL/L (3.6-5.0); SODIUM 143 MMOL/L (135-145); TOTAL PROTEIN 7.3 GM/DL (6.4-8.2)
[2019-08-21 18:19] LABS: BACTERIA,URINE NEGATIVE /HPF; BILIRUBIN,URINE NEGATIVE (NEGATIVE); CLARITY,URINE CLEAR; COLOR,URINE YELLOW; GLUCOSE, URINE (UA) NEGATIVE (NEGATIVE); KETONES,URINE NEGATIVE (NEGATIVE); LEUKOCYTE ESTERASE ,URINE NEGATIVE (NEGATIVE); NITRITE,URINE NEGATIVE (NEGATIVE); PH,URINE 8 (5-9); PROTEIN,URINE NEGATIVE (NEGATIVE); UROBILINOGEN,URINE NORMAL (NORMAL)
[2019-08-21 18:21] LABS: AMPHETAMINE SCREEN, URINE NEGATIVE (NEGATIVE); BARBITURATE SCREEN URINE NEGATIVE (NEGATIVE); BENZODIAZEPINES SCREEN URINE NEGATIVE (NEGATIVE); CANNABINOID SCREEN, URINE POSITIVE (NEGATIVE); COCAINE SCREEN URINE NEGATIVE (NEGATIVE); METHADONE STAT NEGATIVE (NEGATIVE); METHAMPHETAMINE SCREEN URINE S NEGATIVE (NEGATIVE); OPIATE SCREEN URINE NEGATIVE (NEGATIVE); OXYCODONE STAT NEGATIVE (NEGATIVE); PROPOXYPHENE STAT NEGATIVE (NEGATIVE); TRICYCLIC ANTIDEPRESSANTS SCRE NEGATIVE (NEGATIVE)
--- NOTE | 2019-08-21 18:24 | Diagnostic Imaging Report ---
CHEST 1 VIEW, AP/PA ONLY Indication: Chest pain. Comparison: 07/17/2019 Findings: No focal airspace disease in the visualized lungs. Please note that the posterior lower lobes are poorly evaluated by portable radiography. No pleural effusion or pneumothorax. Normal cardiomediastinal silhouette. Impression: 1. No acute cardiopulmonary process by portable radiography. Dictated by: Dictated on workstation # [id number]
[2019-08-21] MEDS ORDERED: ENOXAPARIN 80 MG/0.8 ML (LOVENOX) SYR SC ONE (20:30)
[2019-08-21] MEDS ORDERED: TICAGRELOR 90 MG TABLET (BRILINTA) PO ONE (20:30)
--- NOTE | 2019-08-21 21:45 | NUR ---
report given to madi lassiter
[2019-08-21 22:01] VITALS: BP 133/89
[2019-08-21] MEDS ORDERED: ONDANSETRON 4 MG/2 ML (SDV) Z0FRAN IV PRN (22:15)
[2019-08-21] MEDS ORDERED: fentaNYL INJECTION 100 MCG/2 ML AMP IV PRN (22:15)
[2019-08-21 22:19] VITALS: BP 133/89
[2019-08-21 22:30] VITALS: BP 134/91
[2019-08-21] MEDS: NS IV 1000 ML 1,000 ML IV SCH (23:45)
[2019-08-22] VITALS (11 sets, daily range): BP systolic 118–174; BP diastolic 75–99
[2019-08-22 03:12] LABS: BASOPHILS # (AUTO) 0.1 10^3/uL (0.0-0.1); BASOPHILS % (AUTO) 1 % (0-10); EOSINOPHILS # (AUTO) 0.2 10^3/uL (0.0-0.3); EOSINOPHILS % (AUTO) 4 % (0-10); HEMATOCRIT 39 % (40-54); HEMOGLOBIN 12.6 G/DL (13.3-17.7); LYMPHOCYTES # (AUTO) 1.5 X 10^3 (1.0-4.0); LYMPHOCYTES % (AUTO) 26 % (12-44); MEAN CORPUSCULAR HEMOGLOBIN 30 PG (25-34); MEAN CORPUSCULAR HGB CONC 32 G/DL (32-36); MEAN CORPUSCULAR VOLUME 93 FL (80-99); MEAN PLATELET VOLUME 9.5 FL (7.4-10.4); MONOCYTES # (AUTO) 0.6 X 10^3 (0.0-1.0); MONOCYTES % (AUTO) 11 % (0-12); NEUTROPHILS # (AUTO) 3.4 X 10^3 (1.8-7.8); NEUTROPHILS % (AUTO) 58 % (42-75); PLATELET COUNT 241 10^3/uL (130-400); RED CELL DISTRIBUTION WIDTH 13.1 % (10.0-14.5); WHITE BLOOD COUNT 5.9 10^3/uL (4.3-11.0)
[2019-08-22 03:33] LABS: ALANINE AMINOTRANSFERASE 14 U/L (0-55); ALBUMIN 3.7 GM/DL (3.2-4.5); ALKALINE PHOSPHATASE 71 U/L (40-136); BILIRUBIN,TOTAL 0.4 MG/DL (0.1-1.0); BUN/CREATININE RATIO 11; CALCIUM 8.9 MG/DL (8.5-10.1); CARBON DIOXIDE 24 MMOL/L (21-32); CHLORIDE 112 MMOL/L (98-107); CHOLESTEROL 171 MG/DL (< 200); CREATININE SERUM 0.79 MG/DL (0.60-1.30); GFR ESTIMATED > 60; GLUCOSE 119 MG/DL (70-105); HDL CHOLESTEROL 41 MG/DL (40-60); POTASSIUM 3.8 MMOL/L (3.6-5.0); SODIUM 141 MMOL/L (135-145); TOTAL PROTEIN 5.9 GM/DL (6.4-8.2); TRIGLYCERIDES 120 MG/DL (<150); VLDL CHOLESTEROL 24 MG/DL (5-40)
[2019-08-22] MEDS: NS IV 1000 ML 1,000 ML IV SCH ×2 (08:25→19:29)
--- NOTE | 2019-08-22 09:24 | NUR ---
HEARD A LOUND SOUND FROM ROOM. PT THREW PHONE ACROSS ROOM. NO STAFF WAS IN ROOM. WHEN ASKED WHAT HAPPENED, PT STATED HE THREW HIS "PIECE OF SHIT PHONE ON THE FLOOR". PT DENIED ANY NEEDS AT THIS TIME.
--- NOTE | 2019-08-22 09:55 | History & Physical-Hospitalist ---
History of Present Illness HPI/Chief Complaint Pt is a 59yo CM with a PMH of CAD s/p stenting in March of this year who presented to the ER with CC of chest pain. He states he has been under a lot of stress this year since he was kicked out of his home and has been living on the couch of a friend. Yesterday evening he states he "got pissed off" and developed chest pain and SOB prompting him to seek evaluation in the ER. He states it started in his right arm and radiated up to his neck, jaw, and chest. He was SOB, nauseated, and diaphoretic with this. He described the pain as chest pressure. He reports it has since resolved but he is unsure when overnight it did. His only complaint is that he's agitated. He does report a history of a hematoma and bleed requiring blood transfusion following his cardiac cath in March. Source: patient Date Seen 08/22/19 Time Seen by a Provider: 09:47 Attending Physician Loc Jason MD PCP No,Local Physician Referring Physician Date of Admission Aug 21, 2019 at 21:17 Home Medications & Allergies Home Medications Reviewed patient Home Medication Reconciliation performed by pharmacy medication reconciliations certified technician and/or nursing. Patients Allergies have been reviewed. Allergies Allergies Coded Allergies morphine (Verified Allergy, Mild, 07/17/19) pt states it makes him vomit Past Ubwhswy-Cxqcit-Begwwz Hx Past Med/Social Hx: Reviewed Nursing Past Med/Soc Hx Patient Social History Marrital Status: single Employed/Student: employed Alcohol Use: Denies Use (sober sincd 2001) Recreational Drug Use: Yes Drug of Choice: marijuana- daily Smoking Status: Current Everyday Smoker (vapes) Type Used: Electronic/Vapor 2nd Hand Smoke Exposure: No Recent Foreign Travel: No Contact w/other who traveled: No Recent Hopitalizations: No Recent Infectious Disease Expo: No Past Medical History Surgeries: Appendectomy, Coronary Stent Cardiac: Coronary Artery Disease, Heart Attack, Hypertension History of Blood Disorders: No Adverse Reaction to Blood Thompson: No Family History Heart Disease Review of Systems Constitutional: No chills; diaphoresis; No fever EENTM: no symptoms reported Respiratory: see HPI; No cough; dyspnea on exertion; No phlegm; short of breath Cardiovascular: chest pain; No edema; Hx of Intervention Gastrointestinal: No abdominal pain; nausea Genitourinary: no symptoms reported Musculoskeletal: no symptoms reported Skin: no symptoms reported Psychiatric/Neurological: See HPI Physical Exam Physical Exam Vital Signs Vital Signs - First Documented 08/21/19 17:33 Temp 37.3 Pulse 112 Resp 24 B/P (MAP) 131/114 (120) Pulse Ox 100 O2 Delivery Room Air Capillary Refill : Less Than 3 Seconds Height, Weight, BMI Height: 5'9.00" Weight: 150lbs. oz. 68.278605wa; 21.89 BMI Method:Stated General Appearance: No Apparent Distress, WD/WN, Thin HEENT: PERRL/EOMI, Moist Mucous Membranes; No Scleral Icterus (L), No Scleral Icterus (R) Neck: Normal Inspection, Supple; No JVD, No Thyromegaly Respiratory: Lungs Clear, No Accessory Muscle Use, No Respiratory Distress Cardiovascular: Regular Rate, Rhythm, No Murmur Gastrointestinal: Normal Bowel Sounds, Non Tender, Soft Extremity: Normal Capillary Refill, No Calf Tenderness, No Pedal Edema Neurologic/Psychiatric: Alert, Oriented x3; No Aphasia, No Facial Droop; Other (agitated but cooperative) Skin: Normal Color, Warm/Dry Results Results/Procedures Labs Laboratory Tests 08/21/19 17:35 08/22/19 02:49 Patient resulted labs reviewed. 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
[2019-08-22] MEDS: ENOXAPARIN 80 MG/0.8 ML (LOVENOX) SYR SC SCH ×2 (10:06→21:16)
--- NOTE | 2019-08-22 10:06 | NUR ---
PER DR MCWILLIAMS, [facility]lyBid.
[2019-08-22] MEDS ORDERED: TICAGRELOR 90 MG TABLET (BRILINTA) PO SCH (10:43)
[2019-08-22] MEDS ORDERED: TICAGRELOR 90 MG TABLET (BRILINTA) PO ONE (10:53)
[2019-08-22] MEDS ORDERED: HEParin (CATH LAB) 2,000 ML IV ONE (11:50)
[2019-08-22] MEDS ORDERED: LIDOCAINE 1% INJ 20 ML 20 ML VIAL ONE (11:50)
[2019-08-22] MEDS ORDERED: MIDAZOLAM 5 MG/5 ML (VERSED) VIAL ONE (11:58)
[2019-08-22] MEDS ORDERED: fentaNYL INJECTION 100 MCG/2 ML AMP ONE (11:59)
--- NOTE | 2019-08-22 13:18 | NUR ---
PT TRANSPORTED TO [facility] WITH [employer] STAFF.
[2019-08-22] MEDS ORDERED: HEParin 1000 UNIT/ML (10ML VIAL) FOR BOLUS ONE (13:47)
[2019-08-22] MEDS ORDERED: NITRO DRIP 25000 MCG/D5W 250 ML IV ONE (13:47)
[2019-08-22] MEDS ORDERED: VERAPAMIL 5 MG/2 ML (CALAN) VIAL IV ONE (13:47)
--- NOTE | 2019-08-22 14:20 | Consultation-Cardiology ---
HPI-Cardiology Cardiology Consultation: Date of Consultation 08/22/19 Date of Admission Attending Physician Dipika Jason MD Admitting Physician No,Local Physician Consulting Physician Uday CABRERA MD HPI: Time Seen by a Provider: 10:00 Chief Complaint: Chest pain This is a 59-year-old gentleman who complained of chest pain and shortness of breath for a couple of hours. Substernal with no radiation. Very similar to his previous chest discomfort. No exacerbating or relieving factors. Associated with shortness of breath. Mild to moderate intensity. He has history of [address] Ray in [place] and left circumflex artery. He denies active smoking but does weigh pain. Family history is unremarkable. According to the patient he has missed 2 dosages of Plavix but does not know when he missed it. He continues to be on aspirin, statin, metoprolol. Review of Systems-Cardiology Review of Systems Constitutional: As described under HPI; No As described under HPI, No no symptoms reported, No chills, No fever, No lightheadedness Eyes: No As described under HPI, No no symptoms reported, No blindness, No blurred vision, No contact lenses, No drainage, No decreased acuity, No foreign body sensation, No pain, No vision change Ears/Nose/Throat: No As described under HPI, No no symptoms reported, No chronic hearing loss, No ear discharge, No ear pain, No nasal drainage, No ulcerations Respiratory: No no symptoms reported; As described under HPI; No As described under HPI, No cough, No orthopnea, No shortness of breath, No SOB with excertion Cardiovascular: No no symptoms reported; As described under HPI; No As described under HPI; chest pain; No edema, No irregular heart rate, No lightheadedness, No palpitations Gastrointestinal: No no symptoms reported, No As described under HPI, No abdomen distended, No abdominal pain, No blood streaked bowels, No constipation, No diarrhea, No nausea, No vomiting, No stool coloration changes Genitourinary: No As described under HPI, No burning, No dysuria, No discharge, No frequency, No flank pain, No hematuria, No urgency Skin: No rash, No skin related problems, No ulcerations Psychiatric/Neurological: No anxiety, No depression, No seizure, No focal weakness, No syncope Hematologic: No bleeding abnormalities LVQ-Slloig-Hrzehv Hx Patient Social History Marrital Status: single Employed/Student: employed Alcohol Use: Denies Use (sober sincd 2000) Recreational Drug Use: Yes Drug of Choice: marijuana- daily Smoking Status: Current Everyday Smoker (vapes) Type Used: Electronic/Vapor 2nd Hand Smoke Exposure: No Recent Foreign Travel: No Recent Infectious Disease Expo: No Hospitalization with Isolation: Denies Past Medical History PMH As described under Assessment. Allergies and Home Medications Allergies Coded Allergies: morphine (Verified Allergy, Mild, 07/17/19) pt states it makes him vomit Home Medications Aspirin 81 Mg Tablet.dr, 81 MG PO DAILY Prescribed by: ALVARO RAY on 04/17/19 0825 Atorvastatin Calcium 10 Mg Tablet, 10 MG PO DAILY Prescribed by: ALVARO RAY on 04/17/19 0825 Clopidogrel Bisulfate 75 Mg Tablet, 75 MG PO DAILY Prescribed by: ALVARO RAY on 04/17/19 08 Metoprolol Succinate 25 Mg Tab.er.24h, 25 MG PO DAILY Prescribed by: ALVARO RAY on 04/17/19 0825 Patient Home Medication List Home Medication List Reviewed: Yes Physical Exam-Cardiology Physical Exam Vital Signs/I&O 08/22/19 08/22/19 08/22/19 08/22/19 04:00 04:26 07:00 08:00 Temp 36.5 36.4 Pulse 84 71 73 Resp 16 16 B/P (MAP) 150/84 (106) 142/85 (104) Pulse Ox 98 98 98 O2 Delivery Room Air Room Air Room Air 08/22/19 08/22/19 08/22/19 08/22/19 08:29 08:40 12:00 12:15 Temp 36.5 Pulse 77 Resp 14 B/P (MAP) 137/99 (112) Pulse Ox 96 96 99 97 O2 Delivery Room Air Room Air Room Air Room Air 08/22/19 13:00 Pulse 80 08/22/19 00:00 Intake Total 1000 ml Balance 1000 ml Capillary Refill : Less Than 3 Seconds Constitutional: appears stated age; No apparent distress; well-developed, well- nourished HEENT: PERRL; No discharge; hearing is well preserved, oral hygience is good; No ulceration, No xanthelasmas are seen Neck: No carotid bruit; carotid pulses are 2 + bilaterally Respiratory: chest is bilaterally symmetric, lungs clear to auscultation Cardiovascular: regular rate-rhythm, S1 and S2 Gastrointestinal: soft, round, audible bowel sounds; No spleenomegaly Rectal: deferred Extremities: normal range of motion, non-tender, normal inspection; No clubbing, No cyanosis; no lower extremity edema bilateral; No significant edema Neurologic/Psychiatric: no motor/sensory deficits, alert, normal mood/affect, oriented x 3, power is 5/5 both on sides Skin: normal color; No rash, No ulcerations Data Review Labs Laboratory Tests 08/21/19 17:35: White Blood Count 8.4, Red Blood Count 4.61, Hemoglobin 14.0, Hematocrit 42, Mean Corpuscular Volume 91, Mean Corpuscular Hemoglobin 30, Mean Corpuscular Hemoglobin Concent 33, Red Cell Distribution Width 12.9, Platelet Count 287, Mean Platelet Volume 9.1, Neutrophils (%) (Auto) 65, Lymphocytes (%) (Auto) 24, Monocytes (%) (Auto) 9, Eosinophils (%) (Auto) 1, Basophils (%) (Auto) 1, Neutrophils # (Auto) 5.5, Lymphocytes # (Auto) 2.0, Monocytes # (Auto) 0.8, Eosinophils # (Auto) 0.1, Basophils # (Auto) 0.1, Prothrombin Time 12.4, INR Comment 0.9, Activated Partial Thromboplast Time 28, D-Dimer 0.38, Sodium Level 143, Potassium Level 3.6, Chloride Level 110H, Carbon Dioxide Level 23, Anion Gap 10, Blood Urea Nitrogen 10, Creatinine 1.00, Estimat Glomerular Filtration Rate > 60, BUN/Creatinine Ratio 10, Glucose Level 95, Calcium Level 10.1, Corrected Calcium 9.7, Magnesium Level 2.2, Total Bilirubin 0.5, Aspartate Amino Transf (AST/SGOT) 22, Alanine Aminotransferase (ALT/SGPT) 17, Alkaline Phosphatase 84, Myoglobin 117.7H, Troponin I < 0.028, Total Protein 7.3, Albumin 4.5 08/21/19 17:55: Urine Color YELLOW, Urine Clarity CLEAR, Urine pH 8, Urine Specific [place] 1.010L, Urine Protein NEGATIVE, Urine Glucose (UA) NEGATIVE, Urine Ketones N EGATIVE, Urine Nitrite NEGATIVE, Urine Bilirubin NEGATIVE, Urine Urobilinogen NORMAL, Urine Leukocyte Esterase NEGATIVE, Urine RBC (Auto) NEGATIVE, Urine RBC NONE, Urine WBC NONE, Urine Crystals NONE, Urine Bacteria NEGATIVE, Urine Casts NONE, Urine Mucus NEGATIVE, Urine Culture Indicated NO, Urine Opiates Screen NEGATIVE, Urine Oxycodone Screen NEGATIVE, Urine Methadone Screen NEGATIVE, Urine Propoxyphene Screen NEGATIVE, Urine Barbiturates Screen NEGATIVE, Ur Tricyclic Antidepressants Screen NEGATIVE, Urine Phencyclidine Screen NEGATIVE, Urine Amphetamines Screen NEGATIVE, Urine Methamphetamines Screen NEGATIVE, Urine Benzodiazepines Screen NEGATIVE, Urine Cocaine Screen NEGATIVE, Urine Cannabinoids Screen POSITIVEH 08/21/19 19:32: Troponin I 0.055H 08/22/19 02:49: White Blood Count 5.9, Red Blood Count 4.19L, Hemoglobin 12.6L, Hematocrit 39L, Mean Corpuscular Volume 93, Mean Corpuscular Hemoglobin 30, Mean Corpuscular Hemoglobin Concent 32, Red Cell Distribution Width 13.1, Platelet Count 241, Mean Platelet Volume 9.5, Neutrophils (%) (Auto) 58, Lymphocytes (%) (Auto) 26, Monocytes (%) (Auto) 11, Eosinophils (%) (Auto) 4, Basophils (%) (Auto) 1, Neutrophils # (Auto) 3.4, Lymphocytes # (Auto) 1.5, Monocytes # (Auto) 0.6, Eosinophils # (Auto) 0.2, Basophils # (Auto) 0.1, Sodium Level 141, Potassium Level 3.8, Chloride Level 112H, Carbon Dioxide Level 24, Anion Gap 5, Blood Urea Nitrogen 9, Creatinine 0.79, Estimat Glomerular Filtration Rate > 60, BUN/Creatinine Ratio 11, Glucose Level 119H, Calcium Level 8.9, Corrected Calcium 9.1, Total Bilirubin 0.4, Aspartate Amino Transf (AST/SGOT) 17, Alanine Aminotransferase (ALT/SGPT) 14, Alkaline Phosphatase 71, Total Protein 5.9L, Albumin 3.7, Triglycerides Level 120, Cholesterol Level 171, LDL Cholesterol Direct 117, VLDL Cholesterol 24, HDL Cholesterol 41 08/22/19 05:55: Troponin I 0.575*H A/P-Cardiology Assessment/Admission Diagnosis Non-STEMI, Medical noncompliance, PCI [address] Ray, Hypertension, Hyperlipidemia, Plan Non-STEMI, will change Plavix to Brilinta. Coronary angiography is recommended. Informed consent was taken. Echocardiogram. The patient missed a few dosages of Plavix. Compliance with medication was strongly recommended. Hypertension, continue metoprolol. Hyperlipidemia continue statin therapy. Thank you for your consultation. Please call me if you have any questions. Jolene Cabrera MD, FACP, FACC, FSCAI, FHRS, CCDS Interventional Cardiology Cardiac Electrophysiology Vascular Medicine and Endovascular Interventions Clinical Quality Measures AMI/AHF: ASA po Prior to arrival: Yes DVT/VTE Risk/Contraindication: Risk Factor Score Per Nursin RFS Level Per Nursing on Admit: 3=High Uday CABRERA MD Aug 22, 2019 14:20
--- NOTE | 2019-08-22 14:24 | Cardiac Procedure Note-CS/ASA ---
Pre-Procedure Note Pre-Op Procedure Note H&P Reviewed The H&P was reviewed, patient examined and no changes noted. Date H&P Reviewed: Aug 22, 2019 Time H&P Reviewed: 11:00 Conscious Sedation Pre-Proced Time 11:00 ASA Score 3 For ASA 3 and 4: Consider anesthesia and medical clearance. Also, for patients with a history of failed moderate sedation consider anesthesia. Airway Lungs Heart ASA score ASA 1: a normal healthy patient ASA 2: a patient with a mild systemic disease (mid diabetes, controlled hypertension, obesity ASA 3: a patient with a severe systemic disease that limits activity (angina, COPD, prior Myocardial infarction) ASA 4: a patient with an incapacitating disease that is a constant threat to life (CHF, renal failure) ASA 5: a moribund patient not expected to survive 24 hrs. (ruptured aneurysm) ASA 6: a declared brain- patient whose organs are being harvested. For emergent operations, add the letter E after the classification Mallampati Classification Grade 1 Sedation Plan Analgesia, Amnesia, Plan communicated to team members, Discussed options with patient/fam, Discussed risks with patient/fam The patient is an appropriate candidate to undergo the planned procedure, sedation, and anesthesia. The patient immediately re-assessed prior to indication. Uday MCWILLIAMS MD Aug 22, 2019 14:23
--- NOTE | 2019-08-22 14:27 | Coronary Angiography Report ---
Coronary Angiography Report DATE OF PROCEDURE: 08/22/19 INDICATION: Non-STEMI. PREOPERATIVE DIAGNOSIS: Non-STEMI. POSTOPERATIVE DIAGNOSIS: Patent stents. HISTORY: This is a 59-year-old gentleman with history of PCI with 2 stents in March 2019. He presents with chest pain and positive cardiac enzymes. Therefore, the patient was scheduled for coronary angiography. PROCEDURES PERFORMED: 1.Coronary angiography. 2.Left heart catheterization. COMPLICATIONS: None. SPECIMENS: None. ESTIMATED BLOOD LOSS: 10 mL ANESTHESIA: Conscious sedation ANTICOAGULATION: IV heparin CONTRAST: 26 ml. FLUOROSCOPY: 1.7 minutes. FLOUROSCOPY DOSE: 114 mgy. PROCEDURE DETAILS: The patient is a 59 male and was brought to the catheterization laboratory technician after informed consent was taken. All the risks and complications were explained in detail; this included the risk of bleeding, vascular damage, stroke, LA and even . The patient was draped and prepped in the usual sterile fashion. Access was gained in the right radial artery with a 6 Sami sheath. Coronary angiography and left heart catheterization was performed with the [place] cath eter. FINDINGS: 1.Left main: Patent. 2.LAD: Patent stent in the mid LAD with mild disease at the distal edge of the stent. GIANLUCA-3 flow. 3.Left circumflex artery: Patent stent in the mid left circumflex artery with no focal stenosis is noted. 4.RCA: Mild disease in the proximal and distal segment. Stenosis severity 30-40 percent. No focal stenosis with GIANLUCA-3 flow. 5.Left heart catheterization: LV pressure 106/0 mmHg. LVEDP 11 mmHg. Aortic pressure 104/71 mmHg. Normal LV function with no wall motion abnormalities. No gradient across the aortic valve. CONCLUSIONS: Patent stents in the LAD and left circumflex artery. Unclear etiology of chest pain and positive enzymes. We will change Plavix to Brilinta. We will keep him overnight and discussed with Dr. Ray as well. Jolene Cabrera MD, FACP, FACC, [facility] Interventional Cardiology Uday CABRERA MD Aug 22, 2019 14:27
[2019-08-22] MEDS ORDERED: PATIENT MAY USE OWN MEDS, ALL PO SCH (14:30)
--- NOTE | 2019-08-22 17:32 | NUR ---
PT UP, OUT OF BED. NO COMPLICATIONS NOTED. RIGHT RADIAL ARTERY SITE BENIGN. DRESSING CLEAN AND DRY.
[2019-08-22] MEDS: TICAGRELOR 90 MG TABLET (BRILINTA) PO SCH (21:15)
[2019-08-23] VITALS: BP 115/72
[2019-08-23] MEDS: NS IV 1000 ML 1,000 ML IV SCH ×2 (00:29→10:17)
[2019-08-23 03:59] LABS: HEMOGLOBIN 13.6 G/DL (13.3-17.7); MEAN PLATELET VOLUME 9.1 FL (7.4-10.4); RED CELL DISTRIBUTION WIDTH 13.3 % (10.0-14.5); WHITE BLOOD COUNT 7.4 10^3/uL (4.3-11.0)
[2019-08-23 04:00] VITALS: BP 121/80
[2019-08-23 04:19] LABS: BUN/CREATININE RATIO 11; CALCIUM 8.8 MG/DL (8.5-10.1); CARBON DIOXIDE 23 MMOL/L (21-32); CHLORIDE 111 MMOL/L (98-107); CREATININE SERUM 0.82 MG/DL (0.60-1.30); GFR ESTIMATED > 60; GLUCOSE 103 MG/DL (70-105); POTASSIUM 3.8 MMOL/L (3.6-5.0); SODIUM 142 MMOL/L (135-145)
[2019-08-23 04:30] VITALS: BP 121/80
[2019-08-23 08:00] VITALS: BP 119/76
[2019-08-23 08:01] VITALS: BP 119/76
[2019-08-23] MEDS: ENOXAPARIN 80 MG/0.8 ML (LOVENOX) SYR SC SCH (08:04)
[2019-08-23] MEDS: TICAGRELOR 90 MG TABLET (BRILINTA) PO SCH (08:04)
--- NOTE | 2019-08-23 08:44 | Cardiology Progress Note ---
Subjective Date Seen by Provider: Aug 23, 2019 Time Seen by Provider: 08:42 Subjective/Events-last exam Patient is sitting in bed, feeling better, no chest pain or dyspnea, no palpitations Review of Systems General: No Chills, No Night Sweats; Fatigue; No Malaise, No Appetite, No Other HEENT: No Head Aches, No Visual Changes, No Eye Pain, No Ear Pain, No Dysphasia, No Sinus Congestion, No Post Nasal Drip, No Sore Throat, No Other Pulmonary: No Dyspnea, No Cough, No Pleuritic Chest Pain, No Other Cardiovascular: No: Chest Pain, Palpitations, Orthopnea, Paroxysmal Noc. Dyspnea, Edema, Lt Headedness, Other Objective-Cardiology Exam Last Set of Vital Signs Vital Signs 08/23/19 08/23/19 08:00 08:01 Temp 36.6 Pulse 92 Resp 12 B/P (MAP) 119/76 (90) Pulse Ox 98 O2 Delivery Room Air Capillary Refill : Less Than 3 Seconds I&O Intake and Output 08/23/19 00:00 Intake Total 2140 ml Output Total 3100 ml Balance -960 ml Intake Oral 1140 ml IV Total 1000 ml Output Urine Total 3100 ml General: Alert, Oriented X3, Cooperative HEENT: Atraumatic, PERRLA Neck: Supple, No JVD, No Thyromegaly Lungs: Clear to Auscultation, Normal Air Movement Heart: Regular Rate, Normal S1, Normal S2, No Murmurs Abdomen: Normal Bowel Sounds, Soft, No Tenderness, No Hepatosplenomegaly, No Masses Extremities: No Clubbing, No Cyanosis, No Edema, Normal Pulses, No Tenderness/Swelling Skin: No Rashes, No Breakdown, No Significant Lesion Neuro: Normal Gait, Normal Speech, Strength at 5/5 X4 Ext, Normal Tone, Sensation Intact Psych/Mental Status: Mental Status NL, Mood NL Results Lab Laboratory Tests 08/23/19 04:00 A/P-Cardiology Admission Diagnosis Non-ST elevation myocardial infarction Coronary artery disease Hyperlipidemia Noncompliance with medication Assessment/Plan Non-ST elevation myocardial infarction, small vessel disease per cardiac catheterization Coronary artery disease, history of non-ST elevation myocardial infarct in March 2019, underwent stent to the LAD and circumflex artery, noncompliant with medication, educated about compliance, cardiac catheterization carried out by Dr. Cabrera on August 22, 2019 showing patent stent in the LAD and the circumflex artery, small vessel disease distally, patient cannot afford Brilinta, does not have any insurance, he is able to afford Plavix Hyperlipidemia, will start on Lipitor History of tobaccoism, still having some dyspnea on exertion, work on disability, I'll refer him for pulmonary evaluation History of marijuana use Clinical Quality Measures AMI/AHF: ASA po Prior to arrival: Yes DVT/VTE Risk/Contraindication: Risk Factor Score Per Nursin RFS Level Per Nursing on Admit: 3=High ALVARO SMYTH MD Aug 23, 2019 08:44
[2019-08-23] MEDS ORDERED: ASPI-983 PO (08:46)
[2019-08-23] MEDS ORDERED: CLOP75TA28 PO (08:46)
[2019-08-23] MEDS ORDERED: ATOR10TA PO (08:46)
[2019-08-23] MEDS ORDERED: METO-387 PO (08:46)
[2019-08-23] MEDS ORDERED: ASPIRIN E.C. 81 MG (ECOTRIN) TAB PO SCH (09:00)
--- NOTE | 2019-08-23 09:20 | Discharge Summary ---
Discharge Summary Hospital Course Was the Problem List Reviewed?: Yes Problems/Dx: (1) NSTEMI (non-ST elevated myocardial infarction) Status: Acute (2) CAD (coronary artery disease) Status: Chronic Qualifiers: Qualified Codes: I25.118 - Atherosclerotic heart disease of [place] coronary artery with other forms of angina pectoris (3) Essential (primary) hypertension Status: Chronic (4) Marijuana use, continuous Status: Chronic Hospital Course Date of Admission: Aug 21, 2019 at 21:17 Admission Diagnosis : NSTEMI Family Physician/Provider: Gemma,Local Physician Date of Discharge: 08/23/19 Discharge Diagnosis: NSTEMI Hospital Course: Aron Wilkinson is a 59yoM with PMH CAD, HTN, HLD, who presented with chest pain and was admitted with NSTEMI. He underwent left heart catheterization which revealed patent stents and no lesions amenable to stenting. His adherence to his medication regimen was questionable due to financial issues and homelessness. He did report ongoing compliance though. He will follow up with Dr. Ray for CAD and will establish with Dr. Brandt for COPD evaluation. He was recommended to establish with a PCP. Labs and Pending Lab Test: Laboratory Tests 08/23/19 04:00: White Blood Count 7.4, Red Blood Count 4.48, Hemoglobin 13.6, Hematocrit 42, Mean Corpuscular Volume 93, Mean Corpuscular Hemoglobin 30, Mean Corpuscular Hemoglobin Concent 33, Red Cell Distribution Width 13.3, Platelet Count 243, Mean Platelet Volume 9.1, D-Dimer 0.30, Sodium Level 142, Potassium Level 3.8, Chloride Level 111H, Carbon Dioxide Level 23, Anion Gap 8, Blood Urea Nitrogen 9, Creatinine 0.82, Estimat Glomerular Filtration Rate > 60, BUN/Creatinine Ratio 11, Glucose Level 103, Calcium Level 8.8 Home Meds Active Lipitor (Atorvastatin Calcium) 10 Mg Tablet 10 Mg PO DAILY Aspirin EC (Aspirin) 81 Mg Tablet. 81 Mg PO DAILY Metoprolol Succinate 25 Mg Tab.er.24h 25 Mg PO DAILY Clopidogrel (Clopidogrel Bisulfate) 75 Mg Tablet 75 Mg PO DAILY Assessment/Pt Instructions Take medications as prescribed. Follow up with Dr. Ray. Establish with Dr. Brandt for COPD evaluation. Discharge Planning: <30 minutes discharge planning Discharge Instructions Discharge Diet: No Restrictions Activity as Tolerated: Yes Orders & Referrals Cardiology, Pulmonology Consultations Cardiology Discharge Physical Examination Vital Signs Vital Signs Date Time Temp Pulse Resp B/P (MAP) Pulse Ox O2 Delivery O2 Flow Rate FiO2 08/23/19 08:01 92 12 119/76 (90) 98 Room Air 08/23/19 08:00 36.6 General Appearance: No Apparent Distress, WD/WN, Thin HEENT: PERRL/EOMI, Pharynx Normal Respiratory: Lungs Clear, Normal Breath Sounds, No Respiratory Distress Cardiovascular: Regular Rate, Rhythm, No Edema, No Murmur Gastrointestinal: Normal Bowel Sounds, Non Tender, Soft Extremity: Normal Inspection, Non Tender, No Pedal Edema Skin: Normal Color, Warm/Dry Neurologic/Psychiatric: Alert, Oriented x3, Normal Mood/Affect Allergies: Coded Allergies: morphine (Verified Allergy, Mild, 07/17/19) pt states it makes him vomit Copy Copies To 1: CHAYITO BRANDT DO Discharge Summary Date of Admission Aug 21, 2019 at 21:17 Date of Discharge Discharge Date: Aug 23, 2019 Discharge Time: 09:18 Admission Diagnosis Chest Pain Consults/Procedures Consulations Cardiology Procedures Left heart catheterization Discharge Diagnosis NSTEMI (1) NSTEMI (non-ST elevated myocardial infarction) Status: Acute (2) CAD (coronary artery disease) Status: Chronic Qualifiers: Qualified Codes: I25.118 - Atherosclerotic heart disease of [place] coronary artery with other forms of angina pectoris (3) Essential (primary) hypertension Status: Chronic (4) Marijuana use, continuous Status: Chronic Clinical Quality Measures AMI/AHF: ASA po Prior to arrival: Yes DVT/VTE Risk/Contraindication: Risk Factor Score Per Nursin RFS Level Per Nursing on Admit: 3=High GLIES CARLTON MD Aug 23, 2019 09:20
--- NOTE | 2019-08-23 10:00 | NUR ---
CM/SS spoke to patient about current living situation. The patient is currently sleeping on a friends couch and is working out without any issues at this time. The patient has been homeless since November due to splitting up with significant other. 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 The patient states that he is currently getting resources from [employer] and is on the housing waiting list. The patient also states that he gets food stamps and has a government phone. The patient states that his medication is only 4 dollars per prescription at [facility] and states that he can afford that currently. The patient states that he has a ride for discharge today, notified nurse of this information. CM/SS gave the patient contact information. No other needs at this time. Addendum: 08/23/19 at 1010 by ATIF OLIVARES reviewed / approved
--- NOTE | 2019-08-23 10:35 | NUR ---
PT AMBULATORY TO PRIVATE VEHICLE FOR DISCHARGE. ALL PERSONAL BELONGINGS TAKEN BY PATIENT WITH NOTHING LEFT IN ROOM. DISCHARGE PAPERWORK GIVEN TO PATIENT WITH F/U APPOINTMENTS. HE VOICES NO QUESTIONS.
== END 2019-08-23 10:37 | disposition home or self-care (01) | DRG 282 ==
LOC: EDUNIT# 17:32 → ER 17:33 → ICU 21:17
PROVIDERS: ADMIT Family Medicine; ATTEND Family Medicine
PROC: 4A023N7 Measurement of Cardiac Sampling and Pressure, Left Heart, Percutaneous Approach (ICD-10-PCS; principal; 2019-08-22)
PROC: B2111ZZ Fluoroscopy of Multiple Coronary Arteries using Low Osmolar Contrast (ICD-10-PCS; 2019-08-22)
PROC: B2151ZZ Fluoroscopy of Left Heart using Low Osmolar Contrast (ICD-10-PCS; 2019-08-22)
DX: I21.4 Non-ST elevation (NSTEMI) myocardial infarction (principal); I25.118 Atherosclerotic heart disease of native coronary artery with other forms of angina pectoris; I10 Essential (primary) hypertension; E78.5 Hyperlipidemia, unspecified; F12.90 Cannabis use, unspecified, uncomplicated; F17.290 Nicotine dependence, other tobacco product, uncomplicated; I25.2 Old myocardial infarction; Z95.5 Presence of coronary angioplasty implant and graft; Z88.5 Allergy status to narcotic agent; Z91.19 Patient's noncompliance with other medical treatment and regimen; Z59.0 Homelessness
CPT/HCPCS: 36415; 71045; 80048; 80053; 80061; 80306; 81000; 83735; 83874; 84484; 85025; 85027; 85379; 85610; 85730; 93005; 93041; 93306; 93458; 96361; 96372; 96374

== ENCOUNTER → 2019-11-01 | Outpatient (CLI) | payer OTHER ==
[~2019-11-01] MED LIST changes: +CATHETER FLUSH 10 ML SYR IV PRN; +HOLD METFORMIN - RECEIVED CONTRAST 20 ML VIAL IV SCH; +IOHEXOL 350 MG/ML 100 ML (OMNIPAQUE 350) VIAL IV ONE; -METO-387 PO; +MTP25TSR PO; +NS 100 ML (IVPB) BAG IV ONE; +RT-ALBUTEROL SULF 2.5 MG/3 ML PRE-MIX VIAL INH ONE; +RT-ALBUTEROL SULF 2.5 MG/3 ML PRE-MIX VIAL ONE
[2019-11-01 16:16] LABS: BUN/CREATININE RATIO 9; CREATININE SERUM 1.01 MG/DL (0.60-1.30); GFR ESTIMATED > 60
--- NOTE | 2019-11-01 19:45 | Diagnostic Imaging Report ---
PROCEDURE: CT chest with contrast only. TECHNIQUE: Multiple contiguous axial images were obtained through the chest after administration of intravenous contrast. Auto Exposure Controls were utilized during the CT exam to meet ALARA standards for radiation dose reduction. DATE: November 01, 2019. COMPARISON: Chest radiograph August 21, 2019. INDICATION: 59-year-old male, dyspnea. FINDINGS: There is a normal variant azygos lobe. There is a 2 mm right middle lobe pulmonary nodule on axial image 86. There is no additional identified pulmonary nodule. There is no focal airspace consolidation. There is no pneumothorax. There is no pleural effusion. The central airways are patent. There is no identified pulmonary embolus. The main pulmonary artery is normal in caliber. The heart is not enlarged. There is no pericardial effusion. There are atherosclerotic calcifications. There is no identified abnormally enlarged mediastinal, hilar, or axillary lymph node which meets CT size criteria for adenopathy. There is a low-attenuation right thyroid nodule measuring 12 mm in size. There is a lesion in the right lobe of the liver with peripheral nodular enhancement on axial image 148 measuring 2.0 cm in size. This potentially could reflect a hemangioma but could not be definitively assessed on this exam. There is no additional identified liver lesion in the included field of view. There is ectasia of the infrarenal abdominal aorta which measures up to 2.5 x 2.6 cm in diameter. There is no identified acute bony abnormality. IMPRESSION: CT CHEST. 1. 2 mm right middle lobe pulmonary nodule. 2. No acute cardiopulmonary abnormality. 3. 12 mm right thyroid nodule. Consider dedicated thyroid ultrasound for further assessment. 4. The lesion in the right lobe of the liver measuring 2.5 x 2.6 cm in size which may relate to a hemangioma but could not be definitively diagnosed on this study. If this is not of known etiology, dedicated liver mass protocol CT with and without intravenous contrast is recommended for further assessment. Dictated by: Dictated on workstation # [id number]
== END ==
LOC: RAD 14:39
PROVIDERS: ATTEND Nurse Practitioner Family
DX: J44.9 Chronic obstructive pulmonary disease, unspecified (principal); J30.9 Allergic rhinitis, unspecified; G47.33 Obstructive sleep apnea (adult) (pediatric); E04.1 Nontoxic single thyroid nodule; K76.89 Other specified diseases of liver; R91.1 Solitary pulmonary nodule
CPT/HCPCS: 36415; 71260; 82565; 84520; 94060; 94726; 94729

== ENCOUNTER → 2019-12-20 | Outpatient (CLI) | payer SELFPAY ==
[~2019-12-20] VITALS: Ht 175.3 cm; Wt 72.7 kg
[~2019-12-20] MED LIST changes: -CATHETER FLUSH 10 ML SYR IV PRN; -HOLD METFORMIN - RECEIVED CONTRAST 20 ML VIAL IV SCH; -IOHEXOL 350 MG/ML 100 ML (OMNIPAQUE 350) VIAL IV ONE; +LIDOCAINE 1% INJ 20 ML 20 ML VIAL INJ ONE; -NS 100 ML (IVPB) BAG IV ONE; -RT-ALBUTEROL SULF 2.5 MG/3 ML PRE-MIX VIAL INH ONE; -RT-ALBUTEROL SULF 2.5 MG/3 ML PRE-MIX VIAL ONE
--- NOTE | 2019-12-20 12:29 | Diagnostic Imaging Report ---
INDICATION: Right thyroid nodule. Patient presents for ultrasound-guided fine-needle aspiration. TECHNIQUE: The patient was brought to the procedure room and placed on the table in the supine position. Ultrasound imaging of the right neck was performed to evaluate for an appropriate entry site. The right neck was then prepped and draped in the usual sterile fashion. A small amount of 1% lidocaine was utilized for local anesthesia. A total of four passes was made into the dominant solid nodule in the upper pole right lobe of the thyroid utilizing 25-gauge needles and fine-needle aspiration technique. Hemostasis was obtained using manual compression. The patient tolerated the procedure well. IMPRESSION: Successful ultrasound-guided fine needle aspiration of the dominant solid nodule in the right thyroid lobe. The Pathology results are currently pending. Dictated by: Dictated on workstation # [id number]
== END ==
LOC: RAD 11:13
PROVIDERS: ATTEND Surgery
DX: E04.1 Nontoxic single thyroid nodule (principal)

== ENCOUNTER → 2019-12-29 | Outpatient (CLI) | payer OTHER ==
[~2019-12-29] MED LIST changes: +BARIUM for suspension 96% w/w (Vanilla Silq Medium Density) PO ONE; +BARIUM for suspension 98% w/w (Vanilla Silq High Density) PO ONE; -LIDOCAINE 1% INJ 20 ML 20 ML VIAL INJ ONE
--- NOTE | 2019-12-29 12:04 | Diagnostic Imaging Report ---
INDICATION: Dysphasia. Patient ingested effervescent crystals as well as thin and thick barium and imaging of esophagus was performed in multiple obliquities. 1 minute and 32 seconds of fluoroscopic time was utilized. The esophagus has a smooth contour. No mass or stricture is identified. No gastroesophageal reflux or hiatal hernia was identified. IMPRESSION: Unremarkable esophagram. Dictated by: Dictated on workstation # [id number]
== END ==
LOC: RAD 09:58
PROVIDERS: ATTEND Surgery
DX: R13.10 Dysphagia, unspecified (principal)
CPT/HCPCS: 74220

== ENCOUNTER 2020-01-31 09:55 | Emergency (ER) | payer OTHER ==
[~2020-01-31] VITALS: Ht 175 cm; Wt 70.2 kg
[~2020-01-31 09:55] MED LIST changes: -BARIUM for suspension 96% w/w (Vanilla Silq Medium Density) PO ONE; -BARIUM for suspension 98% w/w (Vanilla Silq High Density) PO ONE
[2020-01-31] MEDS ORDERED: NS IV 1000 ML 1,000 ML IV SCH (10:14)
[2020-01-31] MEDS ORDERED: NS IV 500 ML 500 ML IV ONE (10:14)
[2020-01-31] MEDS ORDERED: cefTRIAXone FOR IV USE 1,000 MG in WATER (STERILE) FOR INJECTION 10 ML IV ONE (10:15)
[2020-01-31] MEDS ORDERED: AZITHROMYCIN INJECTION 500 MG in NS (IVPB) 250 ML IV ONE (10:15)
[2020-01-31] MEDS ORDERED: RT-ALBUTEROL/IPRATROPIUM 3 ML (DUONEB) VIAL INH ONE (10:15)
--- NOTE | 2020-01-31 10:25 | ED Respiratory ---
General Stated Complaint: COPD Source: patient, other (bf) Exam Limitations: no limitations History of Present Illness Date Seen by Provider: Jan 31, 2020 Time Seen by Provider: 09:57 Initial Comments The patient presents to ER by private conveyance from home with chief complaint of shortness of breath progressively worsening since Friday, 3 days ago. He has a history of COPD followed by Dr. Brandt as well as a history of CAD followed by Dr. Ray. His last stent was placed in July and his first stent was placed in March 2019. He does take his medications for his heart and he uses Advair and albuterol. For the past couple days been using his albuterol inhaler every hour with modest relief. He says is not been able use the Advair however because he does not have the breath take it. He says he has a history of having a heart catheterization when he was very young. Has a history of heart murmur from childhood. He quit smoking years ago. He still smokes marijuana. He does not drink alcohol. Does not have diabetes or hypertension. He denies cholesterol problems. He does of a thyroid nodule causing some compression of his right side of his throat which is being worked up by Dr. Archuleta outpatient for surgery. He has had GERD/gastritis and had to have esophageal dilatation with the last one being in 2016. He is having a difficult time with homelessness right now. He has recently established care with a provider at [facility]. Allergies and Home Medications Allergies Coded Allergies: morphine (Verified Allergy, Mild, 07/17/19) pt states it makes him vomit Home Medications Albuterol Sulfate 2.5 Mg/3 Ml Vial.neb, 2.5 MG INH Q4H PRN for WHEEZING Prescribed by: ELSA JUNE on 01/31/20 1229 Aspirin 81 Mg Tablet.dr, 81 MG PO DAILY Prescribed by: ALVARO RAY on 08/23/19 0846 Atorvastatin Calcium 10 Mg Tablet, 10 MG PO DAILY Prescribed by: ALVARO RAY on 08/23/19 0846 Clopidogrel Bisulfate 75 Mg Tablet, 75 MG PO DAILY Prescribed by: ALVARO RAY on 08/23/19 0846 Ipratropium/Albuterol Sulfate 3 Ml Ampul.neb, 3 ML IH Q6H Prescribed by: ELSA JUNE on 01/31/20 1229 Metoprolol Succinate 25 Mg Tab.er.24h, 25 MG PO DAILY Prescribed by: ALVARO RAY on 08/23/19 0846 Prednisone 20 Mg Tab, 40 MG PO DAILY Prescribed by: ELSA JUNE on 01/31/20 1230 Patient Home Medication List Home Medication List Reviewed: Yes Review of Systems Review of Systems Constitutional: chills, fever (subjective only), malaise EENTM: No ear discharge, No ear pain Respiratory: cough, phlegm, short of breath, wheezing Cardiovascular: No chest pain, No edema; Hx of Intervention; No palpitations; vascular heart diseas Gastrointestinal: No abdominal pain, No constipation, No diarrhea, No nausea Genitourinary: No discharge, No dysuria Musculoskeletal: No back pain, No joint pain Skin: No pruritus, No rash Psychiatric/Neurological: Denies Headache, Denies Numbness All Other Systems Reviewed Negative Unless Noted: Yes Past Uyutueg-Rxsaxl-Oyptkl Hx Patient Social History Alcohol Use: Denies Use Recreational Drug Use: Yes Drug of Choice: cannabis- daily Smoking Status: Former Smoker Type Used: Electronic/Vapor 2nd Hand Smoke Exposure: No Recent Hopitalizations: No Past Medical History Surgeries: Yes Appendectomy, Coronary Stent Respiratory: No Cardiac: Yes Coronary Artery Disease, Heart Attack, Hypertension Neurological: No Genitourinary: No Gastrointestinal: No Musculoskeletal: No Endocrine: No HEENT: No Cancer: No Psychosocial: No Integumentary: No Blood Disorders: No Adverse Reaction/Blood Tranf: No Family Medical History Heart Disease Physical Exam Vital Signs - First Documented 01/31/20 09:57 Temp 36.2 Pulse 96 Resp 17 B/P (MAP) 131/94 (106) Pulse Ox 99 O2 Delivery Room Air Capillary Refill : Height: 5'9.00" Weight: 150lbs. oz. 68.503812io; 23.65 BMI Method:Stated General Appearance: WD/WN, mild distress Eyes: Bilateral Eye Normal Inspection, Bilateral Eye PERRL, Bilateral Eye EOMI HEENT: PERRL/EOMI, normal ENT inspection, TMs normal, pharynx normal Neck: non-tender, full range of motion, supple, normal inspection Respiratory: lungs clear, no accessory muscle use, respiratory distress (mild, respiratory rate of 22), decreased breath sounds Cardiovascular: normal peripheral pulses, regular rate, rhythm Gastrointestinal: non tender, soft Neurologic/Psychiatric: alert, normal mood/affect, oriented x 3 Skin: normal color, warm/dry Focused Exam Lactate Level 01/31/20 10:15: Lactic Acid Level 0.76 Lactic Acid Level Laboratory Tests Test 01/31/20 10:15 Lactic Acid Level 0.76 MMOL/L (0.50-2.00) Progress/Results/Core Measures Suspected Sepsis SIRS Temperature: Pulse: Respiratory Rate: Laboratory Tests 01/31/20 10:15: White Blood Count 4.2L Blood Pressure / Mean: 01/31/20 10:15: Lactic Acid Level 0.76 Laboratory Tests 01/31/20 10:15: Creatinine 0.85, INR Comment 0.9, Platelet Count 230, Total Bilirubin 0.2 Results/Orders Lab Results Laboratory Tests Test 01/31/20 10:15 01/31/20 10:38 01/31/20 10:53 Range/Units White Blood Count 4.2 L 4.3-11.0 10^3/uL Red Blood Count 4.46 4.35-5.85 10^6/uL Hemoglobin 13.4 13.3-17.7 G/DL Hematocrit 41 40-54 % Mean Corpuscular Volume 92 80-99 FL Mean Corpuscular Hemoglobin 30 25-34 PG Mean Corpuscular Hemoglobin Concent 33 32-36 G/DL Red Cell Distribution Width 13.6 10.0-14.5 % Platelet Count 230 130-400 10^3/uL Mean Platelet Volume 9.5 7.4-10.4 FL Neutrophils (%) (Auto) 38 L 42-75 % Lymphocytes (%) (Auto) 43 12-44 % Monocytes (%) (Auto) 18 H 0-12 % Eosinophils (%) (Auto) 1 0-10 % Basophils (%) (Auto) 1 0-10 % Neutrophils # (Auto) 1.6 L 1.8-7.8 X 10^3 Lymphocytes # (Auto) 1.8 1.0-4.0 X 10^3 Monocytes # (Auto) 0.7 0.0-1.0 X 10^3 Eosinophils # (Auto) 0.0 0.0-0.3 10^3/uL Basophils # (Auto) 0.0 0.0-0.1 10^3/uL Prothrombin Time 12.3 12.2-14.7 SEC INR Comment 0.9 0.8-1.4 Activated Partial Thromboplast Time 35 24-35 SEC Sodium Level 140 135-145 MMOL/L Potassium Level 4.1 3.6-5.0 MMOL/L Chloride Level 109 H 98-107 MMOL/L Carbon Dioxide Level 26 21-32 MMOL/L Anion Gap 5 5-14 MMOL/L Blood Urea Nitrogen 9 7-18 MG/DL Creatinine 0.85 0.60-1.30 MG/DL Estimat Glomerular Filtration Rate > 60 BUN/Creatinine Ratio 11 Glucose Level 100 70-105 MG/DL Lactic Acid Level 0.76 0.50-2.00 MMOL/L Calcium Level 8.9 8.5-10.1 MG/DL Corrected Calcium 8.9 8.5-10.1 MG/DL Total Bilirubin 0.2 0.1-1.0 MG/DL Aspartate Amino Transf (AST/SGOT) 19 5-34 U/L Alanine Aminotransferase (ALT/SGPT) 16 0-55 U/L Alkaline Phosphatase 90 40-136 U/L Troponin I < 0.028 <0.028 NG/ML Total Protein 6.6 6.4-8.2 GM/DL Albumin 4.0 3.2-4.5 GM/DL Blood Gas Puncture Site L RAD Blood Gas Patient Temperature 36.2 Arterial Blood pH 7.43 7.37-7.43 Arterial Blood Partial Pressure CO2 37 35-45 MMHG Arterial Blood Partial Pressure O2 99 H 79-93 MMHG Arterial Blood HCO3 24 23-27 MMOL/L Arterial Blood Total CO2 25.4 21.0-31.0 MMOL/L Arterial Blood Oxygen Saturation 98 94-100 % Arterial Blood Base Excess 0.2 -2.5-2.5 MMOL/L Cu[place]htemoc Test YES-POS Blood Gas Ventilator Setting NO Blood Gas Inspired Oxygen 0 Urine Color YELLOW Urine Clarity CLEAR Urine pH 6.0 5-9 Urine Specific [place] 1.010 L 1.016-1.022 Urine Protein NEGATIVE NEGATIVE Urine Glucose (UA) NEGATIVE NEGATIVE Urine Ketones NEGATIVE NEGATIVE Urine Nitrite NEGATIVE NEGATIVE Urine Bilirubin NEGATIVE NEGATIVE Urine Urobilinogen 0.2 < = 1.0 MG/DL Urine Leukocyte Esterase NEGATIVE NEGATIVE Urine RBC (Auto) NEGATIVE NEGATIVE Urine RBC NONE /HPF Urine WBC NONE /HPF Urine Squamous Epithelial Cells RARE /HPF Urine Crystals NONE /LPF Urine Bacteria NEGATIVE /HPF Urine Casts NONE /LPF Urine Mucus NEGATIVE /LPF Urine Culture Indicated NO Micro Results Microbiology 01/31/20 Influenza Types A,B Antigen (ANTONELLA) - Final, Complete My Orders Orders - ELSA JUNE Cbc With Automated Diff (01/31/20 10:14) Comprehensive Metabolic Panel (01/31/20 10:14) Blood Culture (01/31/20 10:14) Sputum Culture (01/31/20 10:14) Urinalysis (01/31/20 10:14) Urine Culture (01/31/20 10:14) Protime With Inr (01/31/20 10:14) Partial Thromboplastin Time (01/31/20 10:14) Ed Iv/Invasive Line Start (01/31/20 10:14) Ed Iv/Invasive Line Start (01/31/20 10:14) Ekg Tracing (01/31/20 10:14) Troponin I (01/31/20 10:14) Vital Signs Adult Sepsis Patie Q15M (01/31/20 10:14) O2 (01/31/20 10:14) Remove Rings In Anticipation O (01/31/20 10:14) Lactic Acid Analyzer (01/31/20 10:14) Influenza A And B Antigens (01/31/20 10:14) Ns Iv 1000 Ml (Sodium Chloride 0.9%) (01/31/20 10:14) Ceftriaxone For Iv Use (Rocephin For I (01/31/20 10:15) Azithromycin Injection (Zithromax Inject (01/31/20 10:15) Ed Iv/Invasive Line Start (01/31/20 10:14) Ns Iv 500 Ml (Sodium Chloride 0.9%) (01/31/20 10:14) Albuterol/Ipra Inhalation Soln (Duoneb I (01/31/20 10:15) Chest Pa/Lat (2 View) (01/31/20 10:14) Svn Small Volume Nebulizer (01/31/20 10:14) Arterial Blood Gas (01/31/20 10:40) Ondansetron Injection (Zofran Injectio (01/31/20 11:30) Ondansetron Injection (Zofran Injectio (01/31/20 11:17) Medications Given in ED Current Medications Medications Dose Ordered Sig/Richie Route Start Time Stop Time Status Last Admin Dose Admin Albuterol/ Ipratropium 3 ml ONCE ONCE INH 01/31/20 10:15 01/31/20 10:19 DC 01/31/20 10:41 3 ML Azithromycin 500 mg/Sodium Chloride 250 ml @ 250 mls/hr ONCE ONCE IV 01/31/20 10:15 01/31/20 11:14 DC 01/31/20 11:18 250 MLS/HR Ceftriaxone Sodium 1000 mg/ Sterile Water 10 ml @ 200 mls/hr ONCE ONCE IV 01/31/20 10:15 01/31/20 10:19 DC 01/31/20 11:18 200 MLS/HR Ondansetron HCl 8 mg ONCE ONCE IVP 01/31/20 11:30 01/31/20 11:31 DC 01/31/20 11:24 8 MG Sodium Chloride 500 ml @ 0 mls/hr Q0M ONCE IV 01/31/20 10:14 01/31/20 10:19 DC 01/31/20 11:19 500 MLS/HR Vital Signs/I&O 01/31/20 01/31/20 09:57 10:42 Temp 36.2 Pulse 96 Resp 17 B/P (MAP) 131/94 (106) Pulse Ox 99 95 O2 Delivery Room Air Room Air Capillary Refill : Progress Note #1: Time: 10:23 Progress Note Patient's heart rates in the mid 90s and is breathing around 20 to a minute but he is also consistently talking throughout the entire examination. No orthopnea, tripoding or pursed lip breathing. Plan to give him a breathing treatment by nebulizer, get a chest x-ray labs. Because of his tachypnea and tachycardia we'll do a septic workup. We'll get a 2 view chest x-ray. EKG, troponin and BNP. Cardiac catheterization by Dr. Cabrera July 2019 showing patent stents in the LAD and left circumflex artery. Unclear etiology of chest pain and positive troponin. Plavix was switched to Brilinta. Echocardiogram by Dr. Ray March 2019: EF of 55-65% with grade 1 diastolic dysfunction. Progress Note #2: Time: 12:19 Progress Note The patient appears to be having mild COPD exacerbation with ineffective treatment by his DuoNeb inhaler. Plan to Put him on a nebulizer instead. We'll provide him a steroid pack in case he is having difficulty with worsening symptoms and encourage him to follow-up with his doctor or return to the ER if symptoms are severe. ECG Initial ECG Impression Date: Jan 31, 2020 Initial ECG Impression Time: 10:12 Initial ECG Rate: 91 Initial ECG Rhythm: Normal Sinus Initial ECG Intervals: Normal Initial ECG Impression: Normal Comment Normal sinus rhythm without ST elevation or depression. Diagnostic Imaging Diagonstic Imaging: Xray Plain Films/CT/US/NM/MRI: chest (2v) Comments [facility], [place] NAME: TIFFANY ROSE [facility] REC#: [id number] PT STATUS: REG ER : 1960 PHYSICIAN: ELSA JUNE MD ADMIT DATE: 01/31/20/ER Signed Date of Exam:01/31/20 CHEST PA/LAT (2 VIEW) Indication: Respiratory distress PA and lateral chest Heart size and pulmonary vascularity are normal. Lungs are clear. There are no effusions or pneumothoraces. IMPRESSION: Negative chest Dictated by: Dictated on workstation # [id number] Dict: 01/31/20 1045 Trans: 01/31/20 1046 [id number] Interpreted by: JAKUB MORRIS MD Electronically signed by: JAKUB MORRIS MD 01/31/20 1046 Reviewed: Reviewed by Me Departure Impression Primary Impression: COPD with exacerbation Disposition: 01 HOME, SELF-CARE Condition: Stable Departure-Patient Inst. Decision time for Depature: 12:24 Referrals: NO,LOCAL PHYSICIAN (PCP/Family) Primary Care Physician Patient Instructions: Exacerbation of COPD (DC) Add. Discharge Instructions: Nebulized DuoNeb every 4 hours as needed for the next week. Plan to take it every 6 hours while awake for the first week. Follow-up with your primary care doctor. If you don't feel that your breathing is improving despite a DuoNeb then you can pick remover the prednisone pack and start taking 2 tablets daily for the next 5 days and follow-up with primary care. If you're having severe shortness of breath or chest pain then please return to the nearest ER. Scripts Prednisone (Prednisone) 20 Mg Tab 40 MG PO DAILY for 5 Days, #10 TAB 0 Refills Prov: ELSA JUNE 01/31/20 Albuterol Sulfate (Albuterol Sulfate) 2.5 Mg/3 Ml Vial.neb 2.5 MG INH Q4H PRN for WHEEZING, #50 EA 1 Refill Prov: ELSA JUNE 01/31/20 Ipratropium/Albuterol Sulfate (Iprat-Albut 0.5-3(2.5) mg/3 ml) 3 Ml Ampul.neb 3 ML IH Q6H for 7 Days, #30 EACH 0 Refills Prov: ELSA JUNE 01/31/20 ELSA JUNE Jan 31, 2020 10:25
[2020-01-31 10:28] LABS: BASOPHILS % (AUTO) 1 % (0-10); EOSINOPHILS % (AUTO) 1 % (0-10); HEMATOCRIT 41 % (40-54); HEMOGLOBIN 13.4 G/DL (13.3-17.7); LYMPHOCYTES # (AUTO) 1.8 X 10^3 (1.0-4.0); LYMPHOCYTES % (AUTO) 43 % (12-44); MEAN CORPUSCULAR HEMOGLOBIN 30 PG (25-34); MEAN CORPUSCULAR HGB CONC 33 G/DL (32-36); MEAN CORPUSCULAR VOLUME 92 FL (80-99); MEAN PLATELET VOLUME 9.5 FL (7.4-10.4); MONOCYTES # (AUTO) 0.7 X 10^3 (0.0-1.0); MONOCYTES % (AUTO) 18 % (0-12); NEUTROPHILS # (AUTO) 1.6 X 10^3 (1.8-7.8); NEUTROPHILS % (AUTO) 38 % (42-75); PLATELET COUNT 230 10^3/uL (130-400); RED CELL DISTRIBUTION WIDTH 13.6 % (10.0-14.5); WHITE BLOOD COUNT 4.2 10^3/uL (4.3-11.0)
[2020-01-31 10:47] LABS: ABG BASE EXCESS 0.2 MMOL/L (-2.5-2.5); ABG OXYGEN SATURATION 98 % (94-100); ABG PCO2 37 MMHG (35-45); ABG PH 7.43 (7.37-7.43); ABG PO2 99 MMHG (79-93); ABG TCO2 25.4 MMOL/L (21.0-31.0)
--- NOTE | 2020-01-31 10:47 | Diagnostic Imaging Report ---
Indication: Respiratory distress PA and lateral chest Heart size and pulmonary vascularity are normal. Lungs are clear. There are no effusions or pneumothoraces. IMPRESSION: Negative chest Dictated by: Dictated on workstation # [id number]
[2020-01-31 10:53] LABS: ALLENS TEST YES-POS; INSPIRED O2 0; PATIENT TEMP 36.2; VENTILATOR NO
[2020-01-31 10:55] LABS: INR 0.9 (0.8-1.4); PROTHROMBIN TIME PATIENT 12.3 SEC (12.2-14.7)
[2020-01-31 10:57] LABS: ALANINE AMINOTRANSFERASE 16 U/L (0-55); ALKALINE PHOSPHATASE 90 U/L (40-136); BILIRUBIN,TOTAL 0.2 MG/DL (0.1-1.0); BUN/CREATININE RATIO 11; CALCIUM 8.9 MG/DL (8.5-10.1); CARBON DIOXIDE 26 MMOL/L (21-32); CHLORIDE 109 MMOL/L (98-107); CREATININE SERUM 0.85 MG/DL (0.60-1.30); GFR ESTIMATED > 60; GLUCOSE 100 MG/DL (70-105); POTASSIUM 4.1 MMOL/L (3.6-5.0); SODIUM 140 MMOL/L (135-145); TOTAL PROTEIN 6.6 GM/DL (6.4-8.2)
[2020-01-31 11:13] LABS: BILIRUBIN,URINE NEGATIVE (NEGATIVE); CLARITY,URINE CLEAR; COLOR,URINE YELLOW; GLUCOSE, URINE (UA) NEGATIVE (NEGATIVE); KETONES,URINE NEGATIVE (NEGATIVE); LEUKOCYTE ESTERASE ,URINE NEGATIVE (NEGATIVE); NITRITE,URINE NEGATIVE (NEGATIVE); PROTEIN,URINE NEGATIVE (NEGATIVE)
[2020-01-31] MEDS ORDERED: ONDANSETRON 4 MG/2 ML (SDV) Z0FRAN ONE (11:17)
[2020-01-31 11:19] LABS: BACTERIA,URINE NEGATIVE /HPF; SQUAMOUS EPITHELIAL CELL,UR RARE /HPF
[2020-01-31] MEDS ORDERED: ONDANSETRON 4 MG/2 ML (SDV) Z0FRAN IVP ONE (11:30)
[2020-01-31] MEDS ORDERED: IPRA3AMP31 IH (12:29)
[2020-01-31] MEDS ORDERED: ALBU2.5V4 INH (12:29)
[2020-01-31] MEDS ORDERED: PRD20T PO (12:30)
[2020-01-31 12:47] VITALS: BP 124/77
--- OUTSIDE RECORDS SUMMARY | 2020-02-02 18:43 | XMS REPORT | Continuity of Care Document ---
Author Organization Unknown Address Unknown Phone Unavailable Allergies Active Description Code Type Severity Reaction Onset Reported/Identified Relationship to Patient Clinical Status Yes No Known Drug Allergies [id number] Drug Allergy Unknown N/A 04/16/2019 Yes morphine [id number] Drug Allergy Mild N/A 07/17/2019 Medications There is no data. Problems Date Dx Coded Attending Type Code Diagnosis Diagnosed By 04/17/2019 ALVARO SMYTH MD, Ot E78. 5 HYPERLIPIDEMIA, UNSPECIFIED 04/17/2019 ALVARO SMYTH MD, Ot F12. 90 CANNABIS USE, UNSPECIFIED, UNCOMPLICATED 04/17/2019 ALVARO SMYTH MD, Ot F17.290 NICOTINE DEPENDENCE, OTHER TOBACCO PRODU 04/17/2019 ALVARO SMYTH MD, Ot I21. 4 NON-ST ELEVATION (NSTEMI) MYOCARDIAL INF 04/17/2019 ALVARO SMYTH MD Ot I25.119 ATHSCL HEART DISEASE OF [place] [facility] ART W 04/17/2019 ALVARO SMYTH MD, Ot I25. 2 OLD MYOCARDIAL INFARCTION 04/17/2019 ALVARO SMYTH MD Ot I38 ENDOCARDITIS, VALVE UNSPECIFIED 04/17/2019 ALVARO SMYTH MD Ot R07. 9 CHEST PAIN, UNSPECIFIED 07/17/2019 MICHAEL LUCAS APRN Ot I25.10 ATHSCL HEART DISEASE OF [place] CORONARY 07/17/2019 MICHAEL LUCAS APRN Ot I25 .2 OLD MYOCARDIAL INFARCTION 07/17/2019 MICHAEL LUCAS APRN Ot R06.09 OTHER FORMS OF DYSPNEA 07/17/2019 MICHAEL LUCAS APRN Ot Z79.02 TAFFY PULLER (CURRENT) USE OF ANTITHROMBOTI 07/17/2019 MICHAEL LUCAS APRN Ot Z79.82 ALF (CURRENT) USE OF ASPIRIN 07/17/2019 MICHAEL LUCAS APRN Ot Z82.49 FAMILY HX OF ISCHEM HEART DIS AND OTH DI 07/17/2019 MICHAEL LUCAS APRN Ot Z88 .5 ALLERGY STATUS TO NARCOTIC AGENT STATUS 07/17/2019 MICHAEL LUCAS APRN Ot Z90.49 ACQUIRED ABSENCE OF OTHER SPECIFIED PART 07/17/2019 MICHAEL LUCAS APRN Ot Z95 .5 PRESENCE OF CORONARY ANGIOPLASTY IMPLANT 07/20/2019 MICHAEL LUCAS APRN Ot I25.10 ATHSCL HEART DISEASE OF [place] CORONARY 07/20/2019 MICHAEL LUCAS APRN Ot I25 .2 OLD MYOCARDIAL INFARCTION 07/20/2019 MICHAEL LUCAS APRN Ot R06.09 OTHER FORMS OF DYSPNEA 07/20/2019 MICHAEL LUCAS APRN Ot Z79.02 ALF (CURRENT) USE OF ANTITHROMBOTI 07/20/2019 MICHAEL LUCAS APRN Ot Z79.82 ALF (CURRENT) USE OF ASPIRIN 07/20/2019 MICHAEL LUCAS APRN Ot Z82.49 FAMILY HX OF ISCHEM HEART DIS AND OTH DI 07/20/2019 MICHAEL LUCAS APRN Ot Z88 .5 ALLERGY STATUS TO NARCOTIC AGENT STATUS 07/20/2019 MICHAEL LUCAS APRN Ot Z90.49 ACQUIRED ABSENCE OF OTHER SPECIFIED PART 07/20/2019 MICHAEL LUCAS APRN Ot Z95 .5 PRESENCE OF CORONARY ANGIOPLASTY IMPLANT 07/23/2019 MATTY COSTA Ot E78.2 MIXED HYPERLIPIDEMIA 07/23/2019 MATTY COSTA Ot I10 ESSENTIAL (PRIMARY) HYPERTENSION 07/23/2019 MATTY COSTA Ot I25.10 ATHSCL HEART DISEASE OF [place] CORONARY 08/23/2019 LOC REDMOND MD Ot E78. 5 HYPERLIPIDEMIA, UNSPECIFIED 08/23/2019 LOC REDMOND MD Ot F12. 90 CANNABIS USE, UNSPECIFIED, UNCOMPLICATED 08/23/2019 LOC REDMOND MD Ot F17.290 NICOTINE DEPENDENCE, OTHER TOBACCO PRODU 08/23/2019 LOC REDMOND MD Ot I10 ESSENTIAL (PRIMARY) HYPERTENSION 08/23/2019 LOC REDMOND MD Ot I21. 4 NON-ST ELEVATION (NSTEMI) MYOCARDIAL INF 08/23/2019 LOC REDMOND MD Ot I25.118 ATHSCL HEART DISEASE OF [place] ART W 08/23/2019 NYLA MD, LOC M Ot I25. 2 OLD MYOCARDIAL INFARCTION 08/23/2019 NYLA HARRIS, LOC Frye Ot Z59. 0 HOMELESSNESS 08/23/2019 LOC REDMOND MD Ot Z88. 5 ALLERGY STATUS TO NARCOTIC AGENT STATUS 08/23/2019 LOC REDMOND MD Ot Z91. 19 PATIENT'S NONCOMPLIANCE W OTH MEDICAL TR 08/23/2019 LOC REDMOND MD Ot Z95. 5 PRESENCE OF CORONARY ANGIOPLASTY IMPLANT 09/13/2019 MATTY COSTA Ot E78.2 MIXED HYPERLIPIDEMIA 09/13/2019 MATTY COSTA Ot I10 ESSENTIAL (PRIMARY) HYPERTENSION 09/13/2019 MATTY COSTA Ot I25.10 ATHSCL HEART DISEASE OF [place] CORONARY 09/13/2019 MATTY COSTA Ot E78.2 MIXED HYPERLIPIDEMIA 09/13/2019 MATTY COSTA Ot I10 ESSENTIAL (PRIMARY) HYPERTENSION 09/13/2019 MATTY COSTA Ot I25.10 ATHSCL HEART DISEASE OF [place] CORONARY 09/14/2019 MICHAEL LUCAS APRN Ot I25.10 ATHSCL HEART DISEASE OF [place] CORONARY 09/14/2019 MICHAEL LUCAS APRN Ot I25 .2 OLD MYOCARDIAL INFARCTION 09/14/2019 MICHAEL LUCAS APRN Ot R06.09 OTHER FORMS OF DYSPNEA 09/14/2019 MICHAEL LUCAS APRN Ot Z79.02 ALF (CURRENT) USE OF ANTITHROMBOTI 09/14/2019 MICHAEL LUCAS APRN Ot Z79.82 ALF (CURRENT) USE OF ASPIRIN 09/14/2019 MICHAEL LUCAS APRN Ot Z82.49 FAMILY HX OF ISCHEM HEART DIS AND OTH DI 09/14/2019 MICHAEL LUCAS APRN Ot Z88 .5 ALLERGY STATUS TO NARCOTIC AGENT STATUS 09/14/2019 MICHAEL LUCAS APRN Ot Z90.49 ACQUIRED ABSENCE OF OTHER SPECIFIED PART 09/14/2019 MICHAEL LUCAS APRN Ot Z95 .5 PRESENCE OF CORONARY ANGIOPLASTY IMPLANT 11/01/2019 MATTY COSTA Ot E78.2 MIXED HYPERLIPIDEMIA 11/01/2019 MATTY COSTA Ot I10 ESSENTIAL (PRIMARY) HYPERTENSION 11/01/2019 MATTY COSTA Ot I25.10 ATHSCL HEART DISEASE OF [place] CORONARY 12/14/2019 SONIYA HOLLIS APRN Ot E04.1 NONTOXIC SINGLE THYROID NODULE 12/14/2019 SONIYA HOLLIS RETURN CHECKER Ot G47.33 OBSTRUCTIVE SLEEP APNEA (ADULT) (PEDIATR 12/14/2019 OCTAVIO HOLLISINE Silke RETURN CHECKER Ot J30.9 ALLERGIC RHINITIS, UNSPECIFIED 12/14/2019 BUNNY, SONIYA E RETURN CHECKER Ot J44.9 CHRONIC OBSTRUCTIVE PULMONARY DISEASE, U 12/14/2019 BUNNY SONIYA E RETURN CHECKER Ot K76.89 OTHER SPECIFIED DISEASES OF LIVER 12/14/2019 BUNNYOCTAVIO GARCIAINE E RETURN CHECKER Ot R91.1 SOLITARY PULMONARY NODULE 12/15/2019 SONIYA HOLILS RETURN CHECKER Ot E04.1 NONTOXIC SINGLE THYROID NODULE 12/15/2019 SONIYA HOLLIS RETURN CHECKER Ot G47.33 OBSTRUCTIVE SLEEP APNEA (ADULT) (PEDIATR 12/15/2019 SONIYA HOLLIS RETURN CHECKER Ot J30.9 ALLERGIC RHINITIS, UNSPECIFIED 12/15/2019 SONIYA HOLLIS RETURN CHECKER Ot J44.9 CHRONIC OBSTRUCTIVE PULMONARY DISEASE, U 12/15/2019 SONIYA HOLLIS RETURN CHECKER Ot K76.89 OTHER SPECIFIED DISEASES OF LIVER 12/15/2019 OCTAVIO HOLLISINE E RETURN CHECKER Ot R91.1 SOLITARY PULMONARY NODULE 12/23/2019 BRITTNEY WELCH DO Ot E04. 1 NONTOXIC SINGLE THYROID NODULE 12/29/2019 MATTY COSTA Ot E78.2 MIXED HYPERLIPIDEMIA 12/29/2019 MATTY COSTA Ot I10 ESSENTIAL (PRIMARY) HYPERTENSION 12/29/2019 MATTY COSTA Ot I25.10 ATHSCL HEART DISEASE OF [place] CORONARY 12/29/2019 SONIYA HOLLIS RETURN CHECKER Ot E04.1 NONTOXIC SINGLE THYROID NODULE 12/29/2019 SONIYA HOLLIS RETURN CHECKER Ot G47.33 OBSTRUCTIVE SLEEP APNEA (ADULT) (PEDIATR 12/29/2019 SONIYA HOLLIS RETURN CHECKER Ot J30.9 ALLERGIC RHINITIS, UNSPECIFIED 12/29/2019 SONIYA HOLLIS RETURN CHECKER Ot J44.9 CHRONIC OBSTRUCTIVE PULMONARY DISEASE, U 12/29/2019 SONIYA HOLLIS RETURN CHECKER Ot K76.89 OTHER SPECIFIED DISEASES OF LIVER 12/29/2019 SONIYA HOLLIS RETURN CHECKER Ot R91.1 SOLITARY PULMONARY NODULE 12/29/2019 [facility], BRITTNEY D Ot E04. 1 NONTOXIC SINGLE THYROID NODULE 12/29/2019 [facility], BRITTNEY D Ot E04. 1 NONTOXIC SINGLE THYROID NODULE 12/30/2019 Ot R13.10 DYS PHAGIA, UNSPECIFIED 12/31/2019 SONIYA HOLLIS RETURN CHECKER Ot E04.1 NONTOXIC SINGLE THYROID NODULE 12/31/2019 SONIYA HOLLIS RETURN CHECKER Ot G47.33 OBSTRUCTIVE SLEEP APNEA (ADULT) (PEDIATR 12/31/2019 SONIYA HOLLIS APRN Ot J30.9 ALLERGIC RHINITIS, UNSPECIFIED 12/31/2019 SONIYA HOLLIS RETURN CHECKER Ot J44.9 CHRONIC OBSTRUCTIVE PULMONARY DISEASE, U 12/31/2019 SONIYA HOLLIS RETURN CHECKER Ot K76.89 OTHER SPECIFIED DISEASES OF LIVER 12/31/2019 SONIYA HOLLIS RETURN CHECKER Ot R91.1 SOLITARY PULMONARY NODULE 12/31/2019 Ot R13.10 DYS PHAGIA, UNSPECIFIED 12/31/2019 Ot R13.10 DYS PHAGIA, UNSPECIFIED 01/10/2020 [facility] D Ot E04. 1 NONTOXIC SINGLE THYROID NODULE 01/10/2020 Ot R13.10 DYS PHAGIA, UNSPECIFIED 01/31/2020 MATTY COSTA Ot E78.2 MIXED HYPERLIPIDEMIA 01/31/2020 MATTY COSTA Ot I10 ESSENTIAL (PRIMARY) HYPERTENSION 01/31/2020 MATTY COSTA Ot I25.10 ATHSCL HEART DISEASE OF [place] CORONARY 01/31/2020 SONIYA HOLLIS APRN Ot E04.1 NONTOXIC SINGLE THYROID NODULE 01/31/2020 SONIYA HOLLIS RETURN CHECKER Ot G47.33 OBSTRUCTIVE SLEEP APNEA (ADULT) (PEDIATR 01/31/2020 SONIYA HOLLIS RETURN CHECKER Ot J30.9 ALLERGIC RHINITIS, UNSPECIFIED 01/31/2020 SONIYA HOLLIS RETURN CHECKER Ot J44.9 CHRONIC OBSTRUCTIVE PULMONARY DISEASE, U 01/31/2020 SONIYA HOLLIS APRN Ot K76.89 OTHER SPECIFIED DISEASES OF LIVER 01/31/2020 SONIYA HOLLIS APRN Ot R91.1 SOLITARY PULMONARY NODULE 01/31/2020 W[facility]ITT[facility] Ot E04. 1 NONTOXIC SINGLE THYROID NODULE 01/31/2020 Ot R13.10 DYS PHAGIA, UNSPECIFIED 01/31/2020 [facility] Ot E78.2 MIXED HYPERLIPIDEMIA 01/31/2020 [facility] Ot I10 ESSENTIAL (PRIMARY) HYPERTENSION 01/31/2020 [facility] Ot I25.10 ATHSCL HEART DISEASE OF [place] CORONARY 01/31/2020 SONIYA HOLLIS APRN Ot E04.1 NONTOXIC SINGLE THYROID NODULE 01/31/2020 SONIYA HOLLIS APRN Ot G47.33 OBSTRUCTIVE SLEEP APNEA (ADULT) (PEDIATR 01/31/2020 SONIYA HOLLIS APRN Ot J30.9 ALLERGIC RHINITIS, UNSPECIFIED 01/31/2020 SONIYA HOLLIS APRN Ot J44.9 CHRONIC OBSTRUCTIVE PULMONARY DISEASE, U 01/31/2020 SOINYA HOLLIS APRN Ot K76.89 OTHER SPECIFIED DISEASES OF LIVER 01/31/2020 SONIYA HOLLIS APRN Ot R91.1 SOLITARY PULMONARY NODULE 01/31/[facility] 1 NONTOXIC SINGLE THYROID NODULE 01/31/2020 Ot R13.10 DYS PHAGIA, UNSPECIFIED 01/31/2020 [facility] Ot E78.2 MIXED HYPERLIPIDEMIA 01/31/2020 [facility] Ot I10 ESSENTIAL (PRIMARY) HYPERTENSION 01/31/2020 [facility] Ot I25.10 ATHSCL HEART DISEASE OF [place] CORONARY 01/31/2020 SONIYA HOLLIS APRN Ot E04.1 NONTOXIC SINGLE THYROID NODULE 01/31/2020 SONIYA HOLLIS APRN Ot G47.33 OBSTRUCTIVE SLEEP APNEA (ADULT) (PEDIATR 01/31/2020 SONIYA HOLLIS RETURN CHECKER Ot J30.9 ALLERGIC RHINITIS, UNSPECIFIED 01/31/2020 SONIYA HOLLIS RETURN CHECKER Ot J44.9 CHRONIC OBSTRUCTIVE PULMONARY DISEASE, U 01/31/2020 SONIYA HOLLIS APRN Ot K76.89 OTHER SPECIFIED DISEASES OF LIVER 01/31/2020 SONIYA HOLLIS APRN Ot R91.1 SOLITARY PULMONARY NODULE 01/31/2020 BRITTNEY WELCH DO Ot E04. 1 NONTOXIC SINGLE THYROID NODULE 01/31/2020 Ot R13.10 DYS PHAGIA, UNSPECIFIED Procedures Code Description Performed By Per formed On [id number] DI LATION OF 2 COR ART WITH 2 DRUG-ELUT, 04/16/2019 [id number] ME ASURE OF CARDIAC SAMPL PRESSURE, L H 04/16/2019 [id number] FL UOROSCOPY OF MULT COR ART USING L OSM 04/16/2019 [id number] FL UOROSCOPY OF LEFT HEART USING LOW OSMO 04/16/2019 [id number] ME ASURE OF CARDIAC SAMPL PRESSURE, L H 08/22/2019 [id number] FL UOROSCOPY OF MULT COR ART USING L OSM 08/22/2019 [id number] FL UOROSCOPY OF LEFT HEART USING LOW OSMO 08/22/2019 Results Test Result Range Complete blood count (CBC) with automate d white blood cell (WBC) differential - 04/16/19 06:05 Blood leukocytes automated count (number/volume) 8.8 10*3/uL 4.3-11.0 Blood erythrocytes automated count (number/volume) 4.04 10*6/uL 4.35-5.85 Venous blood hemoglobin measurement (mass/volume) 12.2 g/dL 13.3-17.7 Blood hematocrit (volume fraction) 37 % 40-54 Automated erythrocyte mean corpuscular volume 91 [ foz_us] 80-99 Automated erythrocyte mean corpuscular h emoglobin (mass per erythrocyte) 30 pg 25-34 Automated erythrocyte mean corpuscular h emoglobin concentration measurement (mass/volume) 33 g/dL 32-36 Automated erythrocyte distribution width ratio 14. 0 % 10.0- 14.5 Automated blood platelet count (count/volume) 295 10*3/uL 130-400 Automated blood platelet mean volume measurement 9.9 [foz_us] 7.4-10.4 Automated blood neutrophils/100 leukocytes 78 % 42-75 Automated blood lymphocytes/100 leukocytes 13 % 12-44 Blood monocytes/100 leukocytes 7 % 0-12 Automated blood eosinophils/100 leukocytes 1 % 0-10 Automated blood basophils/100 leukocytes 1 % 0-10 Blood neutrophils automated count (number/volume) 6.9 10*3 1.8-7.8 Blood lymphocytes automated count (number/volume) 1.2 10*3 1.0-4.0 Blood monocytes automated count (number/volume) 0. 6 10*3 0.0-1.0 Automated eosinophil count 0.1 10*3/uL 0 .0-0.3 Automated blood basophil count (count/volume) 0.1 10*3/uL 0.0-0.1 Fibrin D-dimer FEU measurement in platel et poor plasma (mass/volume) - 04/16/19 06:05 Fibrin D-dimer FEU measurement in platelet poor plasma (mass/volume) 0.33 ug/mL 0.00-0.49 Serum or plasma ethanol measurement (mas s/volume) - 04/16/19 06:05 Serum or plasma ethanol measurement (mass/volume) < mg/dL <10 Comprehensive metabolic panel - 04/16/19 06:05 Serum or plasma sodium measurement (moles/volume) 140 mmol/L 135-145 Serum or plasma potassium measurement (moles/volume) 4.3 mmol/L 3.6-5.0 Serum or plasma chloride measurement (moles/volume) 110 mmol/L 98-107 Carbon dioxide 21 mmol/L 21-32 Serum or plasma anion gap determination (moles/volume) 9 mmol/L 5-14 Serum or plasma urea nitrogen measurement (mass/volume ) 12 mg/dL 7-18 Serum or plasma creatinine measurement (mass/volume) 1.00 mg/dL 0.60-1.30 Serum or plasma urea nitrogen/creatinine mass ratio 12 NRG Serum or plasma creatinine measurement w ith calculation of estimated glomerular filtration rate > NRG Serum or plasma glucose measurement (mass/volume) 122 mg/dL 70-105 Serum or plasma calcium measurement (mass/volume) 9.2 mg/dL 8.5-10.1 Serum or plasma total bilirubin measurement (mass/volu me) 0.3 mg/dL 0.1-1.0 Serum or plasma alkaline phosphatase nehal surement (enzymatic activity/volume) 58 U/L 40-136 Serum or plasma aspartate aminotransfera se measurement (enzymatic activity/volume) 27 U/L 5-34 Serum or plasma alanine aminotransferase measurement (enzymatic activity/volume) 17 U/L 0-55 Serum or plasma protein measurement (mass/volume) 6.8 g/dL 6.4-8.2 Serum or plasma albumin measurement (mass/volume) 4.1 g/dL 3.2-4.5 CALCIUM CORRECTED 9.1 mg/dL 8.5-10.1 Magnesium - 04/16/19 06:05 Magnesium 3.0 mg/dL 1.8-2.4 Serum or plasma troponin i.cardiac measu rement (mass/volume) - 04/16/19 06:05 Serum or plasma troponin i.cardiac measurement (mass/v olume) < ng/mL <0.028 Myoglobin, serum - 04/16/19 06:05 Myoglobin, serum 97.8 ng/mL 10.0-92.0 Lipase - 04/16/19 06:05 Lipase 25 U/L 8-78 PT panel in platelet poor plasma by coag ulation assay - 04/16/19 06:05 Prothrombin time (PT) in platelet poor plasma by coagu lation assay 13.3 s 12.2-14.7 INR in platelet poor plasma or blood by coagulation as say 1.0 0.8-1.4 Activated partial thromboplastin time (a PTT) in platelet poor plasma bycoagulation assay - 04/16/19 06:05 Activated partial thromboplastin time (a PTT) in platelet poor plasma bycoagulation assay 31 s 24-35 Complete urinalysis with reflex to cultu re - 04/16/19 08:50 Urine color determination YELLOW NRG Urine clarity determination CLEAR NR G Urine pH measurement by test strip 7 5-9 Specific gravity of urine by test strip 1.010 1.016-1.022 Urine protein assay by test strip, semi-quantitative NEGATIVE NEGATIVE Urine glucose detection by automated test strip NE GATIVE NEGATIVE Erythrocytes detection in urine sediment by light micr oscopy NEGATIVE NEGATIVE Urine ketones detection by automated test strip NE GATIVE NEGATIVE Urine nitrite detection by test strip NEGATIVE NEGATIVE Urine total bilirubin detection by test strip NEGA TIVE NEGATIVE Urine urobilinogen measurement by automated test strip (mass/volume) NORMAL NORMAL Urine leukocyte esterase detection by dipstick NEG ATIVE NEGATIVE Automated urine sediment erythrocyte cou nt by microscopy (number/high power field) NONE NRG Automated urine sediment leukocyte count by microscopy (number/high power field) NONE NRG Bacteria detection in urine sediment by light microsco py NEGATIVE NRG Crystals detection in urine sediment by light microsco py NONE NRG Casts detection in urine sediment by light microscopy NONE NRG Mucus detection in urine sediment by light microscopy NEGATIVE NRG Complete urinalysis with reflex to culture NO NRG Urine drug screening test - 04/16/19 08: 50 Urine phencyclidine detection by screening method NEGATIVE NEGATIVE Urine benzodiazepines detection by screening method NEGATIVE NEGATIVE Urine cocaine detection NEGATIVE NEGATI VE Urine amphetamines detection by screening method N EGATIVE NEGATIVE Urine methamphetamine detection by screening method NEGATIVE NEGATIVE Urine cannabinoids detection by screening method P OSITIVE NEGATIVE Urine opiates detection by screening method NEGATI VE NEGATIVE Urine barbiturates detection NEGATIVE N EGATIVE Screening urine tricyclic antidepressants detection NEGATIVE NEGATIVE Urine methadone detection by screening method NEGA TIVE NEGATIVE Urine oxycodone detection NEGATIVE NEGA TIVE Urine propoxyphene detection NEGATIVE N EGATIVE Serum or plasma creatine kinase measurem ent (enzymatic activity/volume) - 04/16/19 09:20 Serum or plasma creatine kinase measurem ent (enzymatic activity/volume) 153 U/L 30-200 Serum or plasma troponin i.cardiac measu rement (mass/volume) - 04/16/19 09:20 Serum or plasma troponin i.cardiac measurement (mass/v olume) 0.327 ng/mL <0.028 Myoglobin, serum - 04/16/19 09:20 Myoglobin, serum 153.0 ng/mL 10.0-92.0 RED CELLS LEUKO REDUCED AS1 - 04/16/19 1 7:50 RED CELLS LEUKO REDUCED AS1 N OT AVAILABLE NRG Blood type T Indirect antibody screen [facility] - 04/16/19 17:50 ABO+Rh group OP NRG Transfusion band number [id number] NRG Blood group antibody screen NEGATIVE NR G Serum or plasma troponin i.cardiac measu rement (mass/volume) - 04/16/19 17:50 Serum or plasma troponin i.cardiac measurement (mass/v olume) 3.485 ng/mL <0.028 Whole blood hemoglobin and hematocrit [facility] - 04/16/19 17:50 Venous blood hemoglobin measurement (mass/volume) 10.2 g/dL 13.3-17.7 Blood hematocrit (volume fraction) 31 % 40-54 Automated blood complete blood count (he mogram) panel - 04/17/19 03:38 Blood leukocytes automated count (number/volume) 8.8 10*3/uL 4.3-11.0 Blood erythrocytes automated count (number/volume) 3.85 10*6/uL 4.35-5.85 Venous blood hemoglobin measurement (mass/volume) 11.7 g/dL 13.3-17.7 Blood hematocrit (volume fraction) 35 % 40-54 Automated erythrocyte mean corpuscular volume 92 [ foz_us] 80-99 Automated erythrocyte mean corpuscular h emoglobin (mass per erythrocyte) 30 pg 25-34 Automated erythrocyte mean corpuscular h emoglobin concentration measurement (mass/volume) 33 g/dL 32-36 Automated erythrocyte distribution width ratio 14. 6 % 10.0- 14.5 Automated blood platelet count (count/volume) 232 10*3/uL 130-400 Automated blood platelet mean volume measurement 9.7 [foz_us] 7.4-10.4 Whole blood basic metabolic panel - 03/25 04/11 03:38 Serum or plasma sodium measurement (moles/volume) 143 mmol/L 135-145 Serum or plasma potassium measurement (moles/volume) 3.8 mmol/L 3.6-5.0 Serum or plasma chloride measurement (moles/volume) 112 mmol/L 98-107 Carbon dioxide 21 mmol/L 21-32 Serum or plasma anion gap determination (moles/volume) 10 mmol/L 5-14 Serum or plasma urea nitrogen measurement (mass/volume ) 10 mg/dL 7-18 Serum or plasma creatinine measurement (mass/volume) 0.75 mg/dL 0.60-1.30 Serum or plasma urea nitrogen/creatinine mass ratio 13 NRG Serum or plasma creatinine measurement w ith calculation of estimated glomerular filtration rate > NRG Serum or plasma glucose measurement (mass/volume) 114 mg/dL 70-105 Serum or plasma calcium measurement (mass/volume) 8.8 mg/dL 8.5-10.1 Serum or plasma troponin i.cardiac measu rement (mass/volume) - 04/17/19 03:38 Serum or plasma troponin i.cardiac measurement (mass/v olume) 2.125 ng/mL <0.028 Lipid 1996 panel - 04/17/19 03:38 Serum or plasma triglyceride measurement (mass/volume) 109 mg/dL <150 Serum or plasma cholesterol measurement (mass/volume) 149 mg/dL < 200 Serum or plasma cholesterol in HDL measurement (mass/v olume) 37 mg/dL 40-60 Cholesterol in LDL [mass/volume] in serum or plasma by direct assay 99 mg/dL 1-129 Serum or plasma cholesterol in VLDL measurement (mass/ volume) 22 mg/dL 5-40 Complete blood count (CBC) with automate d white blood cell (WBC) differential - 07/17/19 13:30 Blood leukocytes automated count (number/volume) 9.0 10*3/uL 4.3-11.0 Blood erythrocytes automated count (number/volume) 4.41 10*6/uL 4.35-5.85 Venous blood hemoglobin measurement (mass/volume) 13.6 g/dL 13.3-17.7 Blood hematocrit (volume fraction) 42 % 40-54 Automated erythrocyte mean corpuscular volume 94 [ foz_us] 80-99 Automated erythrocyte mean corpuscular h emoglobin (mass per erythrocyte) 31 pg 25-34 Automated erythrocyte mean corpuscular h emoglobin concentration measurement (mass/volume) 33 g/dL 32-36 Automated erythrocyte distribution width ratio 12. 9 % 10.0- 14.5 Automated blood platelet count (count/volume) 242 10*3/uL 130-400 Automated blood platelet mean volume measurement 9.6 [foz_us] 7.4-10.4 Automated blood neutrophils/100 leukocytes 66 % 42-75 Automated blood lymphocytes/100 leukocytes 26 % 12-44 Blood monocytes/100 leukocytes 8 % 0-12 Automated blood eosinophils/100 leukocytes 1 % 0-10 Automated blood basophils/100 leukocytes 0 % 0-10 Blood neutrophils automated count (number/volume) 5.9 10*3 1.8-7.8 Blood lymphocytes automated count (number/volume) 2.3 10*3 1.0-4.0 Blood monocytes automated count (number/volume) 0. 7 10*3 0.0-1.0 Automated eosinophil count 0.1 10*3/uL 0 .0-0.3 Automated blood basophil count (count/volume) 0.0 10*3/uL 0.0-0.1 PT panel in platelet poor plasma by coag ulation assay - 07/17/19 13:30 Prothrombin time (PT) in platelet poor plasma by coagu lation assay 13.1 s 12.2-14.7 INR in platelet poor plasma or blood by coagulation as say 1.0 0.8-1.4 Activated partial thromboplastin time (a PTT) in platelet poor plasma bycoagulation assay - 07/17/19 13:30 Activated partial thromboplastin time (a PTT) in platelet poor plasma bycoagulation assay 30 s 24-35 Fibrin D-dimer FEU measurement in platel et poor plasma (mass/volume) - 07/17/19 13:30 Fibrin D-dimer FEU measurement in platelet poor plasma (mass/volume) 0.30 ug/mL 0.00-0.49 Comprehensive metabolic panel - 07/17/19 13:30 Serum or plasma sodium measurement (moles/volume) 142 mmol/L 135-145 Serum or plasma potassium measurement (moles/volume) 3.4 mmol/L 3.6-5.0 Serum or plasma chloride measurement (moles/volume) 108 mmol/L 98-107 Carbon dioxide 19 mmol/L 21-32 Serum or plasma anion gap determination (moles/volume) 15 mmol/L 5-14 Serum or plasma urea nitrogen measurement (mass/volume ) 9 mg/dL 7-18 Serum or plasma creatinine measurement (mass/volume) 0.94 mg/dL 0.60-1.30 Serum or plasma urea nitrogen/creatinine mass ratio 10 NRG Serum or plasma creatinine measurement w ith calculation of estimated glomerular filtration rate > NRG Serum or plasma glucose measurement (mass/volume) 96 mg/dL 70-105 Serum or plasma calcium measurement (mass/volume) 9.4 mg/dL 8.5-10.1 Serum or plasma total bilirubin measurement (mass/volu me) 0.4 mg/dL 0.1-1.0 Serum or plasma alkaline phosphatase nehal surement (enzymatic activity/volume) 77 U/L 40-136 Serum or plasma aspartate aminotransfera se measurement (enzymatic activity/volume) 15 U/L 5-34 Serum or plasma alanine aminotransferase measurement (enzymatic activity/volume) 17 U/L 0-55 Serum or plasma protein measurement (mass/volume) 7.1 g/dL 6.4-8.2 Serum or plasma albumin measurement (mass/volume) 4.5 g/dL 3.2-4.5 CALCIUM CORRECTED 9.0 mg/dL 8.5-10.1 Magnesium - 07/17/19 13:30 Magnesium 2.2 mg/dL 1.6-2.4 Serum or plasma troponin i.cardiac measu rement (mass/volume) - 07/17/19 13:30 Serum or plasma troponin i.cardiac measurement (mass/v olume) < ng/mL <0.028 Myoglobin, serum - 07/17/19 13:30 Myoglobin, serum 43.3 ng/mL 10.0-92.0 Serum or plasma lithium measurement (mol es/volume) - 07/17/19 13:30 BNP PT 30.4 pg/mL <100.0 Complete urinalysis with reflex to cultu re - 07/17/19 14:47 Urine color determination YELLOW NRG Urine clarity determination CLEAR NR G Urine pH measurement by test strip 6 5-9 Specific gravity of urine by test strip 1.010 1.016-1.022 Urine protein assay by test strip, semi-quantitative NEGATIVE NEGATIVE Urine glucose detection by automated test strip NE GATIVE NEGATIVE Erythrocytes detection in urine sediment by light micr oscopy NEGATIVE NEGATIVE Urine ketones detection by automated test strip NE GATIVE NEGATIVE Urine nitrite detection by test strip NEGATIVE NEGATIVE Urine total bilirubin detection by test strip NEGA TIVE NEGATIVE Urine urobilinogen measurement by automated test strip (mass/volume) NORMAL NORMAL Urine leukocyte esterase detection by dipstick NEG ATIVE NEGATIVE Automated urine sediment erythrocyte cou nt by microscopy (number/high power field) NONE NRG Automated urine sediment leukocyte count by microscopy (number/high power field) [HPF] NRG Bacteria detection in urine sediment by light microsco py NONE NRG Crystals detection in urine sediment by light microsco py NONE NRG Casts detection in urine sediment by light microscopy NONE NRG Mucus detection in urine sediment by light microscopy NEGATIVE NRG Complete urinalysis with reflex to culture NO NRG Urine drug screening test - 07/17/19 14: 47 Urine phencyclidine detection by screening method NEGATIVE NEGATIVE Urine benzodiazepines detection by screening method NEGATIVE NEGATIVE Urine cocaine detection NEGATIVE NEGATI VE Urine amphetamines detection by screening method N EGATIVE NEGATIVE Urine methamphetamine detection by screening method NEGATIVE NEGATIVE Urine cannabinoids detection by screening method P OSITIVE NEGATIVE Urine opiates detection by screening method NEGATI VE NEGATIVE Urine barbiturates detection NEGATIVE N EGATIVE Screening urine tricyclic antidepressants detection NEGATIVE NEGATIVE Urine methadone detection by screening method NEGA TIVE NEGATIVE Urine oxycodone detection NEGATIVE NEGA TIVE Urine propoxyphene detection NEGATIVE N EGATIVE Serum or plasma troponin i.cardiac measu rement (mass/volume) - 07/17/19 15:27 Serum or plasma troponin i.cardiac measurement (mass/v olume) < ng/mL <0.028 Complete blood count (CBC) with automate d white blood cell (WBC) differential - 08/21/19 17:35 Blood leukocytes automated count (number/volume) 8.4 10*3/uL 4.3-11.0 Blood erythrocytes automated count (number/volume) 4.61 10*6/uL 4.35-5.85 Venous blood hemoglobin measurement (mass/volume) 14.0 g/dL 13.3-17.7 Blood hematocrit (volume fraction) 42 % 40-54 Automated erythrocyte mean corpuscular volume 91 [ foz_us] 80-99 Automated erythrocyte mean corpuscular h emoglobin (mass per erythrocyte) 30 pg 25-34 Automated erythrocyte mean corpuscular h emoglobin concentration measurement (mass/volume) 33 g/dL 32-36 Automated erythrocyte distribution width ratio 12. 9 % 10.0- 14.5 Automated blood platelet count (count/volume) 287 10*3/uL 130-400 Automated blood platelet mean volume measurement 9.1 [foz_us] 7.4-10.4 Automated blood neutrophils/100 leukocytes 65 % 42-75 Automated blood lymphocytes/100 leukocytes 24 % 12-44 Blood monocytes/100 leukocytes 9 % 0-12 Automated blood eosinophils/100 leukocytes 1 % 0-10 Automated blood basophils/100 leukocytes 1 % 0-10 Blood neutrophils automated count (number/volume) 5.5 10*3 1.8-7.8 Blood lymphocytes automated count (number/volume) 2.0 10*3 1.0-4.0 Blood monocytes automated count (number/volume) 0. 8 10*3 0.0-1.0 Automated eosinophil count 0.1 10*3/uL 0 .0-0.3 Automated blood basophil count (count/volume) 0.1 10*3/uL 0.0-0.1 PT panel in platelet poor plasma by coag ulation assay - 08/21/19 17:35 Prothrombin time (PT) in platelet poor plasma by coagu lation assay 12.4 s 12.2-14.7 INR in platelet poor plasma or blood by coagulation as say 0.9 0.8-1.4 Activated partial thromboplastin time (a PTT) in platelet poor plasma bycoagulation assay - 08/21/19 17:35 Activated partial thromboplastin time (a PTT) in platelet poor plasma bycoagulation assay 28 s 24-35 Fibrin D-dimer FEU measurement in platel et poor plasma (mass/volume) - 08/21/19 17:35 Fibrin D-dimer FEU measurement in platelet poor plasma (mass/volume) 0.38 ug/mL 0.00-0.49 Comprehensive metabolic panel - 08/21/19 17:35 Serum or plasma sodium measurement (moles/volume) 143 mmol/L 135-145 Serum or plasma potassium measurement (moles/volume) 3.6 mmol/L 3.6-5.0 Serum or plasma chloride measurement (moles/volume) 110 mmol/L 98-107 Carbon dioxide 23 mmol/L 21-32 Serum or plasma anion gap determination (moles/volume) 10 mmol/L 5-14 Serum or plasma urea nitrogen measurement (mass/volume ) 10 mg/dL 7-18 Serum or plasma creatinine measurement (mass/volume) 1.00 mg/dL 0.60-1.30 Serum or plasma urea nitrogen/creatinine mass ratio 10 NRG Serum or plasma creatinine measurement w ith calculation of estimated glomerular filtration rate > NRG Serum or plasma glucose measurement (mass/volume) 95 mg/dL 70-105 Serum or plasma calcium measurement (mass/volume) 10.1 mg/dL 8.5-10.1 Serum or plasma total bilirubin measurement (mass/volu me) 0.5 mg/dL 0.1-1.0 Serum or plasma alkaline phosphatase nehal surement (enzymatic activity/volume) 84 U/L 40-136 Serum or plasma aspartate aminotransfera se measurement (enzymatic activity/volume) 22 U/L 5-34 Serum or plasma alanine aminotransferase measurement (enzymatic activity/volume) 17 U/L 0-55 Serum or plasma protein measurement (mass/volume) 7.3 g/dL 6.4-8.2 Serum or plasma albumin measurement (mass/volume) 4.5 g/dL 3.2-4.5 CALCIUM CORRECTED 9.7 mg/dL 8.5-10.1 Magnesium - 08/21/19 17:35 Magnesium 2.2 mg/dL 1.6-2.4 Serum or plasma troponin i.cardiac measu rement (mass/volume) - 08/21/19 17:35 Serum or plasma troponin i.cardiac measurement (mass/v olume) < ng/mL <0.028 Myoglobin, serum - 08/21/19 17:35 Myoglobin, serum 117.7 ng/mL 10.0-92.0 Complete urinalysis with reflex to cultu re - 08/21/19 17:55 Urine color determination YELLOW NRG Urine clarity determination CLEAR NR G Urine pH measurement by test strip 8 5-9 Specific gravity of urine by test strip 1.010 1.016-1.022 Urine protein assay by test strip, semi-quantitative NEGATIVE NEGATIVE Urine glucose detection by automated test strip NE GATIVE NEGATIVE Erythrocytes detection in urine sediment by light micr oscopy NEGATIVE NEGATIVE Urine ketones detection by automated test strip NE GATIVE NEGATIVE Urine nitrite detection by test strip NEGATIVE NEGATIVE Urine total bilirubin detection by test strip NEGA TIVE NEGATIVE Urine urobilinogen measurement by automated test strip (mass/volume) NORMAL NORMAL Urine leukocyte esterase detection by dipstick NEG ATIVE NEGATIVE Automated urine sediment erythrocyte cou nt by microscopy (number/high power field) NONE NRG Automated urine sediment leukocyte count by microscopy (number/high power field) NONE NRG Bacteria detection in urine sediment by light microsco py NEGATIVE NRG Crystals detection in urine sediment by light microsco py NONE NRG Casts detection in urine sediment by light microscopy NONE NRG Mucus detection in urine sediment by light microscopy NEGATIVE NRG Complete urinalysis with reflex to culture NO NRG Urine drug screening test - 08/21/19 17: 55 Urine phencyclidine detection by screening method NEGATIVE NEGATIVE Urine benzodiazepines detection by screening method NEGATIVE NEGATIVE Urine cocaine detection NEGATIVE NEGATI VE Urine amphetamines detection by screening method N EGATIVE NEGATIVE Urine methamphetamine detection by screening method NEGATIVE NEGATIVE Urine cannabinoids detection by screening method P OSITIVE NEGATIVE Urine opiates detection by screening method NEGATI VE NEGATIVE Urine barbiturates detection NEGATIVE N EGATIVE Screening urine tricyclic antidepressants detection NEGATIVE NEGATIVE Urine methadone detection by screening method NEGA TIVE NEGATIVE Urine oxycodone detection NEGATIVE NEGA TIVE Urine propoxyphene detection NEGATIVE N EGATIVE Serum or plasma troponin i.cardiac measu rement (mass/volume) - 08/21/19 19:32 Serum or plasma troponin i.cardiac measurement (mass/v olume) 0.055 ng/mL <0.028 Complete blood count (CBC) with automate d white blood cell (WBC) differential - 08/22/19 02:49 Blood leukocytes automated count (number/volume) 5.9 10*3/uL 4.3-11.0 Blood erythrocytes automated count (number/volume) 4.19 10*6/uL 4.35-5.85 Venous blood hemoglobin measurement (mass/volume) 12.6 g/dL 13.3-17.7 Blood hematocrit (volume fraction) 39 % 40-54 Automated erythrocyte mean corpuscular volume 93 [ foz_us] 80-99 Automated erythrocyte mean corpuscular h emoglobin (mass per erythrocyte) 30 pg 25-34 Automated erythrocyte mean corpuscular h emoglobin concentration measurement (mass/volume) 32 g/dL 32-36 Automated erythrocyte distribution width ratio 13. 1 % 10.0- 14.5 Automated blood platelet count (count/volume) 241 10*3/uL 130-400 Automated blood platelet mean volume measurement 9.5 [foz_us] 7.4-10.4 Automated blood neutrophils/100 leukocytes 58 % 42-75 Automated blood lymphocytes/100 leukocytes 26 % 12-44 Blood monocytes/100 leukocytes 11 % 0-12 Automated blood eosinophils/100 leukocytes 4 % 0-10 Automated blood basophils/100 leukocytes 1 % 0-10 Blood neutrophils automated count (number/volume) 3.4 10*3 1.8-7.8 Blood lymphocytes automated count (number/volume) 1.5 10*3 1.0-4.0 Blood monocytes automated count (number/volume) 0. 6 10*3 0.0-1.0 Automated eosinophil count 0.2 10*3/uL 0 .0-0.3 Automated blood basophil count (count/volume) 0.1 10*3/uL 0.0-0.1 Comprehensive metabolic panel - 08/22/19 02:49 Serum or plasma sodium measurement (moles/volume) 141 mmol/L 135-145 Serum or plasma potassium measurement (moles/volume) 3.8 mmol/L 3.6-5.0 Serum or plasma chloride measurement (moles/volume) 112 mmol/L 98-107 Carbon dioxide 24 mmol/L 21-32 Serum or plasma anion gap determination (moles/volume) 5 mmol/L 5-14 Serum or plasma urea nitrogen measurement (mass/volume ) 9 mg/dL 7-18 Serum or plasma creatinine measurement (mass/volume) 0.79 mg/dL 0.60-1.30 Serum or plasma urea nitrogen/creatinine mass ratio 11 NRG Serum or plasma creatinine measurement w ith calculation of estimated glomerular filtration rate > NRG Serum or plasma glucose measurement (mass/volume) 119 mg/dL 70-105 Serum or plasma calcium measurement (mass/volume) 8.9 mg/dL 8.5-10.1 Serum or plasma total bilirubin measurement (mass/volu me) 0.4 mg/dL 0.1-1.0 Serum or plasma alkaline phosphatase nehal surement (enzymatic activity/volume) 71 U/L 40-136 Serum or plasma aspartate aminotransfera se measurement (enzymatic activity/volume) 17 U/L 5-34 Serum or plasma alanine aminotransferase measurement (enzymatic activity/volume) 14 U/L 0-55 Serum or plasma protein measurement (mass/volume) 5.9 g/dL 6.4-8.2 Serum or plasma albumin measurement (mass/volume) 3.7 g/dL 3.2-4.5 CALCIUM CORRECTED 9.1 mg/dL 8.5-10.1 Lipid 1996 panel - 08/22/19 02:49 Serum or plasma triglyceride measurement (mass/volume) 120 mg/dL <150 Serum or plasma cholesterol measurement (mass/volume) 171 mg/dL < 200 Serum or plasma cholesterol in HDL measurement (mass/v olume) 41 mg/dL 40-60 Cholesterol in LDL [mass/volume] in serum or plasma by direct assay 117 mg/dL 1-129 Serum or plasma cholesterol in VLDL measurement (mass/ volume) 24 mg/dL 5-40 Serum or plasma troponin i.cardiac measu rement (mass/volume) - 08/22/19 05:55 Serum or plasma troponin i.cardiac measurement (mass/v olume) 0.575 ng/mL <0.028 Automated blood complete blood count (he mogram) panel - 08/23/19 04:00 Blood leukocytes automated count (number/volume) 7.4 10*3/uL 4.3-11.0 Blood erythrocytes automated count (number/volume) 4.48 10*6/uL 4.35-5.85 Venous blood hemoglobin measurement (mass/volume) 13.6 g/dL 13.3-17.7 Blood hematocrit (volume fraction) 42 % 40-54 Automated erythrocyte mean corpuscular volume 93 [ foz_us] 80-99 Automated erythrocyte mean corpuscular h emoglobin (mass per erythrocyte) 30 pg 25-34 Automated erythrocyte mean corpuscular h emoglobin concentration measurement (mass/volume) 33 g/dL 32-36 Automated erythrocyte distribution width ratio 13. 3 % 10.0- 14.5 Automated blood platelet count (count/volume) 243 10*3/uL 130-400 Automated blood platelet mean volume measurement 9.1 [foz_us] 7.4-10.4 Fibrin D-dimer FEU measurement in platel et poor plasma (mass/volume) - 08/23/19 04:00 Fibrin D-dimer FEU measurement in platelet poor plasma (mass/volume) 0.30 ug/mL 0.00-0.49 Whole blood basic metabolic panel - 07/27 04:00 Serum or plasma sodium measurement (moles/volume) 142 mmol/L 135-145 Serum or plasma potassium measurement (moles/volume) 3.8 mmol/L 3.6-5.0 Serum or plasma chloride measurement (moles/volume) 111 mmol/L 98-107 Carbon dioxide 23 mmol/L 21-32 Serum or plasma anion gap determination (moles/volume) 8 mmol/L 5-14 Serum or plasma urea nitrogen measurement (mass/volume ) 9 mg/dL 7-18 Serum or plasma creatinine measurement (mass/volume) 0.82 mg/dL 0.60-1.30 Serum or plasma urea nitrogen/creatinine mass ratio 11 NRG Serum or plasma creatinine measurement w ith calculation of estimated glomerular filtration rate > NRG Serum or plasma glucose measurement (mass/volume) 103 mg/dL 70-105 Serum or plasma calcium measurement (mass/volume) 8.8 mg/dL 8.5-10.1 Complete blood count (CBC) with automate d white blood cell (WBC) differential - 01/31/20 10:15 Blood leukocytes automated count (number/volume) 4.2 10*3/uL 4.3-11.0 Blood erythrocytes automated count (number/volume) 4.46 10*6/uL 4.35-5.85 Venous blood hemoglobin measurement (mass/volume) 13.4 g/dL 13.3-17.7 Blood hematocrit (volume fraction) 41 % 40-54 Automated erythrocyte mean corpuscular volume 92 [ foz_us] 80-99 Automated erythrocyte mean corpuscular h emoglobin (mass per erythrocyte) 30 pg 25-34 Automated erythrocyte mean corpuscular h emoglobin concentration measurement (mass/volume) 33 g/dL 32-36 Automated erythrocyte distribution width ratio 13. 6 % 10.0- 14.5 Automated blood platelet count (count/volume) 230 10*3/uL 130-400 Automated blood platelet mean volume measurement 9.5 [foz_us] 7.4-10.4 Automated blood neutrophils/100 leukocytes 38 % 42-75 Automated blood lymphocytes/100 leukocytes 43 % 12-44 Blood monocytes/100 leukocytes 18 % 0-12 Automated blood eosinophils/100 leukocytes 1 % 0-10 Automated blood basophils/100 leukocytes 1 % 0-10 Blood neutrophils automated count (number/volume) 1.6 10*3 1.8-7.8 Blood lymphocytes automated count (number/volume) 1.8 10*3 1.0-4.0 Blood monocytes automated count (number/volume) 0. 7 10*3 0.0-1.0 Automated eosinophil count 0.0 10*3/uL 0 .0-0.3 Automated blood basophil count (count/volume) 0.0 10*3/uL 0.0-0.1 Blood lactic acid measurement (moles/vol ume) - 01/31/20 10:15 Blood lactic acid measurement (moles/volume) 0.76 mmol/L 0.50-2.00 Influenza virus A and B antigen detectio n - 01/31/20 10:15 FLU RESULT NEGATIVE FOR INFLUENZA A AND B ANTIGENS BY IA NRG PT panel in platelet poor plasma by coag ulation assay - 01/31/20 10:15 Prothrombin time (PT) in platelet poor plasma by coagu lation assay 12.3 s 12.2-14.7 INR in platelet poor plasma or blood by coagulation as say 0.9 0.8-1.4 Activated partial thromboplastin time (a PTT) in platelet poor plasma bycoagulation assay - 01/31/20 10:15 Activated partial thromboplastin time (a PTT) in platelet poor plasma bycoagulation assay 35 s 24-35 Comprehensive metabolic panel - 01/31/20 10:15 Serum or plasma sodium measurement (moles/volume) 140 mmol/L 135-145 Serum or plasma potassium measurement (moles/volume) 4.1 mmol/L 3.6-5.0 Serum or plasma chloride measurement (moles/volume) 109 mmol/L 98-107 Carbon dioxide 26 mmol/L 21-32 Serum or plasma anion gap determination (moles/volume) 5 mmol/L 5-14 Serum or plasma urea nitrogen measurement (mass/volume ) 9 mg/dL 7-18 Serum or plasma creatinine measurement (mass/volume) 0.85 mg/dL 0.60-1.30 Serum or plasma urea nitrogen/creatinine mass ratio 11 NRG Serum or plasma creatinine measurement w ith calculation of estimated glomerular filtration rate > NRG Serum or plasma glucose measurement (mass/volume) 100 mg/dL 70-105 Serum or plasma calcium measurement (mass/volume) 8.9 mg/dL 8.5-10.1 Serum or plasma total bilirubin measurement (mass/volu me) 0.2 mg/dL 0.1-1.0 Serum or plasma alkaline phosphatase nehal surement (enzymatic activity/volume) 90 U/L 40-136 Serum or plasma aspartate aminotransfera se measurement (enzymatic activity/volume) 19 U/L 5-34 Serum or plasma alanine aminotransferase measurement (enzymatic activity/volume) 16 U/L 0-55 Serum or plasma protein measurement (mass/volume) 6.6 g/dL 6.4-8.2 Serum or plasma albumin measurement (mass/volume) 4.0 g/dL 3.2-4.5 CALCIUM CORRECTED 8.9 mg/dL 8.5-10.1 Serum or plasma troponin i.cardiac measu rement (mass/volume) - 01/31/20 10:15 Serum or plasma troponin i.cardiac measurement (mass/v olume) < ng/mL <0.028 Bacterial blood culture - 01/31/20 10:15 Bacterial blood culture NG NRG Arterial blood gas measurement - 0 10:38 Blood pCO2 37 mm[Hg] 35-45 Blood pO2 99 mm[Hg] 79-93 Arterial blood bicarbonate measurement (moles/volume) 24 mmol/L 23-27 Arterial blood base excess by calculation 0.2 mmol /L -2.5-2.5 Arterial blood oxygen saturation measurement 98 % 94-100 * Inhaled oxygen flow rate 0 NRG Arterial blood pH measurement with patient temperature correction 7.43 7.37-7.43 Arterial blood carbon dioxide, total measurement (mole s/volume) 25.4 mmol/L 21.0-31.0 Body site L RAD NRG Assessment of wrist artery patency prior to arterial p uncture YES-POS NRG Setting of ventilation mode NO NR G Measurement of body temperature 36.2 NRG Complete urinalysis with reflex to cultu re - 01/31/20 10:53 Urine color determination YELLOW NRG Urine clarity determination CLEAR NR G Urine pH measurement by test strip 6.0 5-9 Specific gravity of urine by test strip 1.010 1.016-1.022 Urine protein assay by test strip, semi-quantitative NEGATIVE NEGATIVE Urine glucose detection by automated test strip NE GATIVE NEGATIVE Erythrocytes detection in urine sediment by light micr oscopy NEGATIVE NEGATIVE Urine ketones detection by automated test strip NE GATIVE NEGATIVE Urine nitrite detection by test strip NEGATIVE NEGATIVE Urine total bilirubin detection by test strip NEGA TIVE NEGATIVE Urine urobilinogen measurement by automated test strip (mass/volume) 0.2 mg/dL < = 1.0 Urine leukocyte esterase detection by dipstick NEG ATIVE NEGATIVE Automated urine sediment erythrocyte cou nt by microscopy (number/high power field) NONE NRG Automated urine sediment leukocyte count by microscopy (number/high power field) NONE NRG Bacteria detection in urine sediment by light microsco py NEGATIVE NRG Squamous epithelial cells detection in u rine sediment by light microscopy RARE NRG Crystals detection in urine sediment by light microsco py NONE NRG Casts detection in urine sediment by light microscopy NONE NRG Mucus detection in urine sediment by light microscopy NEGATIVE NRG Complete urinalysis with reflex to culture NO NRG Bacterial urine culture - 01/31/20 10:53 Bacterial urine culture NG NRG Bacterial blood culture - 01/31/20 11:00 Bacterial blood culture NG NRG Encounters ACCT No. Visit Date/Time Discharge Status Pt. Type Provider Facility Loc./Unit Complaint [id number] 11/25/2019 08:40:00 11/25/2019 23:59: 59 CLS Outpatient MARVA PEREZ [facility] [id number] 01/31/2020 09:56:00 020 12:42:00 DIS Emergency SLADE HARRIS, ELSA Cavazos [facility] ER COPD [id number] 12/20/2019 11:13:00 23:59:59 CLS Outpatient BRITTNEY WELCH DO [facility] RAD RIGHT THYROID NODULE [id number] 11/01/2019 14:50:00 23:59:59 CLS Preadmit SONIYA HOLLIS APRN [facility] RT DYSPNEA,ALLERGI C RHINITIS,COUGH,COPD,TOBACCO USE [id number] 11/01/2019 14:39:00 23:59:59 CLS Outpatient SONIYA HOLLIS APRN [facility] RAD DYSPNEA,ALLERGI C RHINITIS,COUGH,TOBACCO USE,COPD [id number] 08/21/2019 21:17:00 10:37:00 DIS Inpatient NYLA HARRIS, LOC Frye [facility] ICU CHEST PAIN, ELEVATED TR OPAMIN, NSTEMI [id number] 07/21/2019 14:13:00 23:59:59 CLS Outpatient JOE GONZALEZ, SHAR Francois [facility] CARD ANTERIOR CH EST WALL PAIN [id number] 07/17/2019 13:28:00 16:20:00 DIS Emergency MICHAEL LUCAS APRN [facility] ER SOA - HEART RACING [id number] 04/16/2019 10:34:00 09:35:00 DIS Inpatient LIBRA HARRIS, ALVARO Cavazos [facility] ICU NSTEMI;CHEST PAIN [id number] 12/29/2019 10:12:00 Document Registration
== END 2020-01-31 12:42 | disposition home or self-care (01) ==
LOC: EDUNIT# 09:55 → ER 09:56
DX: J44.1 Chronic obstructive pulmonary disease with (acute) exacerbation (principal); I10 Essential (primary) hypertension; I25.2 Old myocardial infarction; I25.10 Atherosclerotic heart disease of native coronary artery without angina pectoris; Z88.5 Allergy status to narcotic agent; Z79.82 Long term (current) use of aspirin; Z79.02 Long term (current) use of antithrombotics/antiplatelets; Z95.5 Presence of coronary angioplasty implant and graft; Z87.891 Personal history of nicotine dependence; Z82.49 Family history of ischemic heart disease and other diseases of the circulatory system
CPT/HCPCS: 36415; 71046; 80053; 81000; 82805; 83605; 84484; 85025; 85610; 85730; 87040; 87088; 87804; 93005; 94640

== ENCOUNTER → 2020-06-09 | Outpatient (CLI) | payer SELFPAY ==
[~2020-06-09] MED LIST changes: +ALBU2.5V4 INH; +IPRA3AMP31 IH; +PRD20T PO
[2020-06-09 07:42] LABS: BASOPHILS # (AUTO) 0.1 10^3/uL (0.0-0.1); BASOPHILS % (AUTO) 1 % (0-10); EOSINOPHILS # (AUTO) 0.2 10^3/uL (0.0-0.3); EOSINOPHILS % (AUTO) 2 % (0-10); HEMATOCRIT 43 % (40-54); HEMOGLOBIN 14.1 G/DL (13.3-17.7); LYMPHOCYTES # (AUTO) 1.7 X 10^3 (1.0-4.0); LYMPHOCYTES % (AUTO) 25 % (12-44); MEAN CORPUSCULAR HEMOGLOBIN 30 PG (25-34); MEAN CORPUSCULAR HGB CONC 33 G/DL (32-36); MEAN CORPUSCULAR VOLUME 93 FL (80-99); MEAN PLATELET VOLUME 9.2 FL (7.4-10.4); MONOCYTES # (AUTO) 0.7 X 10^3 (0.0-1.0); MONOCYTES % (AUTO) 10 % (0-12); NEUTROPHILS # (AUTO) 4.3 X 10^3 (1.8-7.8); NEUTROPHILS % (AUTO) 62 % (42-75); PLATELET COUNT 262 10^3/uL (130-400); RED CELL DISTRIBUTION WIDTH 13.3 % (10.0-14.5); WHITE BLOOD COUNT 6.9 10^3/uL (4.3-11.0)
[2020-06-09 08:03] LABS: ALANINE AMINOTRANSFERASE 13 U/L (0-55); ALBUMIN 4.1 GM/DL (3.2-4.5); ALKALINE PHOSPHATASE 69 U/L (40-136); BILIRUBIN,TOTAL 0.3 MG/DL (0.1-1.0); BUN/CREATININE RATIO 9; CALCIUM 9.1 MG/DL (8.5-10.1); CARBON DIOXIDE 25 MMOL/L (21-32); CHLORIDE 109 MMOL/L (98-107); CHOLESTEROL 160 MG/DL (< 200); CREATININE SERUM 0.99 MG/DL (0.60-1.30); GFR ESTIMATED > 60; GLUCOSE 109 MG/DL (70-105); HDL CHOLESTEROL 49 MG/DL (40-60); POTASSIUM 4.2 MMOL/L (3.6-5.0); SODIUM 143 MMOL/L (135-145); TOTAL PROTEIN 6.6 GM/DL (6.4-8.2); TRIGLYCERIDES 54 MG/DL (<150); VLDL CHOLESTEROL 11 MG/DL (5-40)
== END ==
LOC: LAB 07:19
PROVIDERS: ATTEND Physician Assistant
DX: I25.10 Atherosclerotic heart disease of native coronary artery without angina pectoris (principal); J44.9 Chronic obstructive pulmonary disease, unspecified; E78.2 Mixed hyperlipidemia; R94.31 Abnormal electrocardiogram [ECG] [EKG]
CPT/HCPCS: 36415; 80053; 80061; 84443; 85025

== ENCOUNTER 2020-06-21 06:02 | Emergency (ER) | payer SELFPAY ==
[~2020-06-21] VITALS: Ht 175 cm; Wt 66.2 kg
[2020-06-21 06:23] VITALS: BP 159/90
--- OUTSIDE RECORDS SUMMARY | 2020-06-21 06:32 | XMS REPORT | Continuity of Care Document ---
Author Organization Unknown Address Unknown Phone Unavailable Allergies Active Description Code Type Severity Reaction Onset Reported/Identified Relationship to Patient Clinical Status Yes No Known Drug Allergies [id number] Drug Allergy Unknown N/A 04/16/2019 Yes morphine [id number] Drug Allergy Mild N/A 07/17/2019 Medications There [...] MD Ot I25.119 ATHSCL HEART DISEASE OF [place] COR ART W 04/17/2019 ALVARO SMYTH MD, Ot I25. 2 OLD MYOCARDIAL INFARCTION 04/17/2019 ALVARO SMYTH MD Ot I38 ENDOCARDITIS, VALVE UNSPECIFIED 04/17/2019 ALVARO SMYTH MD Ot R07. 9 CHEST PAIN, UNSPECIFIED 07/17/2019 MICHAEL LUCAS APRN Ot I25.10 ATHSCL HEART DISEASE OF [place] CORONARY 07/17/2019 MICHAEL LUCAS APRN Ot I25 .2 OLD MYOCARDIAL INFARCTION 07/17/2019 MICHAEL LUCAS APRN Ot R06.09 OTHER FORMS OF DYSPNEA 07/17/2019 MICHAEL LUCAS APRN Ot Z79.02 CHIEF CREW SCHEDULER (CURRENT) USE OF ANTITHROMBOTI 07/17/2019 MICHAEL LUCAS APRN Ot Z79.82 SENIOR CARE (CURRENT) USE OF ASPIRIN 07/17/2019 MICHAEL LUCAS [...] APRN Ot I25.10 ATHSCL HEART DISEASE OF [place] CORONARY 07/20/2019 MICHAEL LUCAS APRN Ot I25 .2 OLD MYOCARDIAL INFARCTION 07/20/2019 MICHAEL LUCAS APRN Ot R06.09 OTHER FORMS OF DYSPNEA 07/20/2019 MICHAEL LUCAS APRN Ot Z79.02 CHIEF CREW SCHEDULER (CURRENT) USE OF ANTITHROMBOTI 07/20/2019 MICHAEL LUCAS APRN Ot Z79.82 CHIEF CREW SCHEDULER (CURRENT) USE OF ASPIRIN 07/20/2019 MICHAEL LUCAS [...] COSTA Ot I25.10 ATHSCL HEART DISEASE OF [place] CORONARY 08/23/2019 LOC REDMOND MD Ot E78. 5 HYPERLIPIDEMIA, UNSPECIFIED 08/23/2019 LOC REDMOND MD Ot F12. 90 CANNABIS USE, UNSPECIFIED, UNCOMPLICATED 08/23/2019 LOC REDMOND MD Ot F17.290 NICOTINE DEPENDENCE, OTHER TOBACCO PRODU 08/23/2019 LOC REDMOND MD Ot I10 ESSENTIAL (PRIMARY) HYPERTENSION 08/23/2019 LOC REDMOND MD Ot I21. 4 NON-ST ELEVATION (NSTEMI) MYOCARDIAL INF 08/23/2019 LOC REDMOND MD Ot I25.118 ATHSCL HEART DISEASE OF [place] ART W 08/23/2019 NYLA MD, LOC [...] COSTA Ot I25.10 ATHSCL HEART DISEASE OF [place] CORONARY 09/13/2019 MATTY COSTA Ot E78.2 MIXED HYPERLIPIDEMIA 09/13/2019 MATTY COSTA Ot I10 ESSENTIAL (PRIMARY) HYPERTENSION 09/13/2019 MATTY COSTA Ot I25.10 ATHSCL HEART DISEASE OF [place] CORONARY 09/14/2019 MICHAEL LUCAS APRN Ot I25.10 ATHSCL HEART DISEASE OF [place] CORONARY 09/14/2019 MICHAEL LUCAS APRN Ot I25 .2 OLD MYOCARDIAL INFARCTION 09/14/2019 MICHAEL LUCAS APRN Ot R06.09 OTHER FORMS OF DYSPNEA 09/14/2019 MICHAEL LUCAS APRN Ot Z79.02 SENIOR CARE (CURRENT) USE OF ANTITHROMBOTI 09/14/2019 MICHAEL LUCAS APRN Ot Z79.82 SENIOR CARE (CURRENT) USE OF ASPIRIN 09/14/2019 MICHAEL LUCAS [...] COSTA Ot I25.10 ATHSCL HEART DISEASE OF [place] CORONARY 12/14/2019 SONIYA HOLLIS APRN Ot E04.1 NONTOXIC SINGLE THYROID NODULE 12/14/2019 SONIYA HOLLIS FLIGHT TOWER DISPATCHER Ot G47.33 OBSTRUCTIVE SLEEP APNEA (ADULT) (PEDIATR 12/14/2019 OCTAVIO HOLLISINE Silke FLIGHT TOWER DISPATCHER Ot J30.9 ALLERGIC RHINITIS, UNSPECIFIED 12/14/2019 BUNNY, SONIYA E FLIGHT TOWER DISPATCHER Ot J44.9 CHRONIC OBSTRUCTIVE PULMONARY DISEASE, U 12/14/2019 BUNNY SONIYA E FLIGHT TOWER DISPATCHER Ot K76.89 OTHER SPECIFIED DISEASES OF LIVER 12/14/2019 BUNNYOCTAVIO GARCIAINE E FLIGHT TOWER DISPATCHER Ot R91.1 SOLITARY PULMONARY NODULE 12/15/2019 SONIYA HOLLIS FLIGHT TOWER DISPATCHER Ot E04.1 NONTOXIC SINGLE THYROID NODULE 12/15/2019 SONIYA HOLLIS FLIGHT TOWER DISPATCHER Ot G47.33 OBSTRUCTIVE SLEEP APNEA (ADULT) (PEDIATR 12/15/2019 SONIYA HOLLIS FLIGHT TOWER DISPATCHER Ot J30.9 ALLERGIC RHINITIS, UNSPECIFIED 12/15/2019 SONIYA HOLLIS FLIGHT TOWER DISPATCHER Ot J44.9 CHRONIC OBSTRUCTIVE PULMONARY DISEASE, U 12/15/2019 SONIYA HOLLIS FLIGHT TOWER DISPATCHER Ot K76.89 OTHER SPECIFIED DISEASES OF LIVER 12/15/2019 OCTAVIO HOLLISINE E FLIGHT TOWER DISPATCHER Ot R91.1 SOLITARY PULMONARY NODULE 12/23/2019 BRITTNEY WELCH DO Ot E04. 1 NONTOXIC SINGLE THYROID NODULE 12/29/2019 MATTY COSTA Ot E78.2 MIXED HYPERLIPIDEMIA 12/29/2019 MATTY COSTA Ot I10 ESSENTIAL (PRIMARY) HYPERTENSION 12/29/2019 MATTY COSTA Ot I25.10 ATHSCL HEART DISEASE OF [place] CORONARY 12/29/2019 SONIYA HOLLIS FLIGHT TOWER DISPATCHER Ot E04.1 NONTOXIC SINGLE THYROID NODULE 12/29/2019 SONIYA HOLLIS FLIGHT TOWER DISPATCHER Ot G47.33 OBSTRUCTIVE SLEEP APNEA (ADULT) (PEDIATR 12/29/2019 SONIYA HOLLIS FLIGHT TOWER DISPATCHER Ot J30.9 ALLERGIC RHINITIS, UNSPECIFIED 12/29/2019 SONIYA HOLLIS FLIGHT TOWER DISPATCHER Ot J44.9 CHRONIC OBSTRUCTIVE PULMONARY DISEASE, U 12/29/2019 SONIYA HOLLIS FLIGHT TOWER DISPATCHER Ot K76.89 OTHER SPECIFIED DISEASES OF LIVER 12/29/2019 SONIYA HOLLIS FLIGHT TOWER DISPATCHER Ot R91.1 SOLITARY PULMONARY NODULE 12/29/2019 [facility], BRITTNEY D Ot E04. 1 NONTOXIC SINGLE THYROID NODULE 12/29/2019 [facility], BRITTNEY D Ot E04. 1 NONTOXIC SINGLE THYROID NODULE 12/30/2019 Ot R13.10 DYS PHAGIA, UNSPECIFIED 12/31/2019 SONIYA HOLLIS FLIGHT TOWER DISPATCHER Ot E04.1 NONTOXIC SINGLE THYROID NODULE 12/31/2019 SONIYA HOLLIS FLIGHT TOWER DISPATCHER Ot G47.33 OBSTRUCTIVE SLEEP APNEA (ADULT) (PEDIATR 12/31/2019 SONIYA HOLLIS APRN Ot J30.9 ALLERGIC RHINITIS, UNSPECIFIED 12/31/2019 SONIYA HOLLIS FLIGHT TOWER DISPATCHER Ot J44.9 CHRONIC OBSTRUCTIVE PULMONARY DISEASE, U 12/31/2019 SONIYA HOLLIS FLIGHT TOWER DISPATCHER Ot K76.89 OTHER SPECIFIED DISEASES OF LIVER 12/31/2019 SONIYA HOLLIS FLIGHT TOWER DISPATCHER Ot R91.1 SOLITARY PULMONARY NODULE 12/31/2019 Ot R13.10 DYS PHAGIA, UNSPECIFIED 12/31/2019 Ot R13.10 DYS PHAGIA, UNSPECIFIED 01/10/2020 [facility] D Ot E04. 1 NONTOXIC SINGLE THYROID NODULE 01/10/2020 Ot R13.10 DYS PHAGIA, UNSPECIFIED 01/31/2020 MATTY COSTA Ot E78.2 MIXED HYPERLIPIDEMIA 01/31/2020 MATTY COSTA Ot I10 ESSENTIAL (PRIMARY) HYPERTENSION 01/31/2020 MATTY COSTA Ot I25.10 ATHSCL HEART DISEASE OF [place] CORONARY 01/31/2020 SONIYA HOLLIS APRN Ot E04.1 NONTOXIC SINGLE THYROID NODULE 01/31/2020 SONIYA HOLLIS FLIGHT TOWER DISPATCHER Ot G47.33 OBSTRUCTIVE SLEEP APNEA (ADULT) (PEDIATR 01/31/2020 SONIYA HOLLIS FLIGHT TOWER DISPATCHER Ot J30.9 ALLERGIC RHINITIS, UNSPECIFIED 01/31/2020 SONIYA HOLLIS FLIGHT TOWER DISPATCHER Ot J44.9 CHRONIC OBSTRUCTIVE PULMONARY DISEASE, U 01/31/2020 SONIYA HOLLIS APRN Ot K76.89 OTHER SPECIFIED DISEASES OF LIVER 01/31/2020 SONIYA HOLLIS APRN Ot R91.1 SOLITARY PULMONARY NODULE 01/31/[facility]. 1 NONTOXIC SINGLE THYROID NODULE 01/31/2020 Ot R13.10 DYS PHAGIA, UNSPECIFIED 01/31/2020 MATTY COSTA Ot E78.2 MIXED HYPERLIPIDEMIA 01/31/2020 MATTY COSTA Ot I10 ESSENTIAL (PRIMARY) HYPERTENSION 01/31/2020 MATTY COSTA Ot I25.10 ATHSCL HEART DISEASE OF [place] CORONARY 01/31/2020 SONIYA HOLLIS APRN Ot E04.1 NONTOXIC SINGLE THYROID NODULE 01/31/2020 SONIYA HOLLIS APRN Ot G47.33 OBSTRUCTIVE SLEEP APNEA (ADULT) (PEDIATR 01/31/2020 SONIYA HOLLIS APRN Ot J30.9 ALLERGIC RHINITIS, UNSPECIFIED 01/31/2020 SONIYA HOLLIS APRN Ot J44.9 CHRONIC OBSTRUCTIVE PULMONARY DISEASE, U 01/31/2020 SONIYA HOLLIS APRN Ot K76.89 OTHER SPECIFIED DISEASES OF LIVER 01/31/2020 SONIYA HOLLIS APRN Ot R91.1 SOLITARY PULMONARY NODULE 01/31/[facility]. 1 NONTOXIC SINGLE THYROID NODULE 01/31/2020 Ot R13.10 DYS PHAGIA, UNSPECIFIED 01/31/2020 ELSA JUNE MD Ot I10 ESSENTIAL (PRIMARY) HYPERTENSION 01/31/2020 ELSA JUNE MD Ot I25. 10 ATHSCL HEART DISEASE OF [place] CORONARY 01/31/2020 ELSA JUNE MD Ot I25. 2 OLD MYOCARDIAL INFARCTION 01/31/2020 ELSA JUNE MD Ot J44. 1 CHRONIC OBSTRUCTIVE PULMONARY DISEASE W 01/31/2020 ELSA JUNE MD Ot R06. 02 SHORTNESS OF BREATH 01/31/2020 ELSA JUNE MD, Ot Z79. 02 CHIEF CREW SCHEDULER (CURRENT) USE OF ANTITHROMBOTI 01/31/2020 ELSA JUNE MD Ot Z79. 82 CHIEF CREW SCHEDULER (CURRENT) USE OF ASPIRIN 01/31/2020 ELSA JUNE MD Ot Z82. 49 FAMILY HX OF ISCHEM HEART DIS AND OTH DI 01/31/2020 ELSA JUNE MD, Ot Z87.891 PERSONAL HISTORY OF NICOTINE DEPENDENCE 01/31/2020 ELSA JUNE MD, Ot Z88. 5 ALLERGY STATUS TO NARCOTIC AGENT STATUS 01/31/2020 ELSA JUNE MD Ot Z95. 5 PRESENCE OF CORONARY ANGIOPLASTY IMPLANT 01/31/2020 MATTY COSTA Ot E78.2 MIXED HYPERLIPIDEMIA 01/31/2020 MATTY COSTA Ot I10 ESSENTIAL (PRIMARY) HYPERTENSION 01/31/2020 MATTY COSTA Ot I25.10 ATHSCL HEART DISEASE OF [place] CORONARY 01/31/2020 SONIYA HOLLIS APRN Ot E04.1 [...] NODULE 01/31/2020 Ot R13.10 DYS PHAGIA, UNSPECIFIED 06/09/2020 MATTY COSTA Ot E78.2 MIXED HYPERLIPIDEMIA 06/09/2020 MTATY COSTA Ot I10 ESSENTIAL (PRIMARY) HYPERTENSION 06/09/2020 MATTY COSTA Ot I25.10 ATHSCL HEART DISEASE OF [place] CORONARY 06/09/2020 SONIYA HOLLIS APRN Ot E04.1 NONTOXIC SINGLE THYROID NODULE 06/09/2020 SONIYA HOLLIS APRN Ot G47.33 OBSTRUCTIVE SLEEP APNEA (ADULT) (PEDIATR 06/09/2020 SONIYA HOLLIS APRN Ot J30.9 ALLERGIC RHINITIS, UNSPECIFIED 06/09/2020 SONIYA HOLLIS APRN Ot J44.9 CHRONIC OBSTRUCTIVE PULMONARY DISEASE, U 06/09/2020 SONIYA HOLLIS APRN Ot K76.89 OTHER SPECIFIED DISEASES OF LIVER 06/09/2020 SONIYA HOLLIS APRN Ot R91.1 SOLITARY PULMONARY NODULE 06/09/2020 BRITTNEY WELCH DO Ot E04. 1 NONTOXIC SINGLE THYROID NODULE 06/09/2020 Ot R13.10 DYS PHAGIA, UNSPECIFIED 06/12/2020 MATTY COSTA Ot E78.2 MIXED HYPERLIPIDEMIA 06/12/2020 MATTY COSTA Ot I25.10 ATHSCL HEART DISEASE OF [place] CORONARY 06/12/2020 MATTY COSTA Ot J44.9 CHRONIC OBSTRUCTIVE PULMONARY DISEASE, U 06/12/2020 MATTY COSTA Ot R94.31 ABNORMAL ELECTROCARDIOGRAM [ECG] [EKG] Procedures Code Description Performed By Per formed On [id number] DI LATION OF 2 COR ART WITH 2 DRUG-ELUT, 04/16/2019 [id number] ME ASURE OF CARDIAC SAMPL PRESSURE, L H 04/16/2019 [id number] FL UOROSCOPY OF MULT COR ART USING L OSM 04/16/2019 [id number] FL UOROSCOPY OF LEFT HEART USING LOW OSMO 04/16/2019 [id number] ME ASURE OF CARDIAC SAMPL PRESSURE, L H 08/22/2019 [id number] FL UOROSCOPY OF MULT COR ART USING L OSM 08/22/2019 [id number] FL UOROSCOPY OF LEFT HEART USING LOW [...] NRG Blood type T Indirect antibody screen pa julita - 04/16/19 17:50 ABO+Rh group OP NRG Transfusion band number [id number] NRG Blood group antibody screen NEGATIVE NR G Serum or plasma troponin i.cardiac measu rement (mass/volume) - 04/16/19 17:50 Serum or plasma troponin i.cardiac measurement (mass/v olume) 3.485 ng/mL <0.028 Whole blood hemoglobin and hematocrit pa julita - 04/16/19 17:50 Venous blood hemoglobin measurement [...] INFLUENZA A AND B ANTIGENS BY IA NR PT panel in platelet poor plasma by [...] Status Pt. Type Provider Facility Loc./Unit Complaint [id number] 11/25/2019 08:40:00 11/25/2019 23:59: 59 CLS Outpatient MARVA PEREZ [facility] [id number] 06/09/2020 07:19:00 23:59:59 CLS Outpatient SHAR COSTA [facility] LAB ABNORMAL EK G,CAD,COPD [id number] 01/31/2020 09:56:00 12:42:00 DIS Emergency ELSA JUNE MD [facility] ER COPD [id number] 12/20/2019 11:13:00 23:59:59 CLS Outpatient BRITTNEY WELCH DO [facility] RAD RIGHT THYROID NODULE [id number] 11/01/2019 14:50:00 23:59:59 CLS Preadmit SONIYA HOLLIS APRN [facility] RT DYSPNEA,ALLERGI C RHINITIS,COUGH,COPD,TOBACCO USE [id number] 11/01/2019 14:39:00 23:59:59 CLS Outpatient SONIYA HOLLIS APRN [facility] RAD DYSPNEA,ALLERGI C RHINITIS,COUGH,TOBACCO USE,COPD [id number] 08/21/2019 21:17:00 10:37:00 DIS Inpatient NYLA HARRIS, LOC Frye [facility] ICU CHEST PAIN, ELEVATED TR OPAMIN, NSTEMI [id number] 07/21/2019 14:13:00 23:59:59 CLS Outpatient SHAR COSTA [facility] CARD ANTERIOR CH EST WALL PAIN [id number] 07/17/2019 13:28:00 16:20:00 DIS Emergency MICHAEL LUCAS FLIGHT TOWER DISPATCHER [facility] ER SOA - HEART RACING [id number] 04/16/2019 10:34:00 019 09:35:00 DIS Inpatient LIBRA HARRIS, ALVARO Cavazos [facility] ICU NSTEMI;CHEST PAIN [id number] 12/29/2019 10:12:00 Document Registration
--- NOTE | 2020-06-21 06:42 | ED Psychosocial ---
General Chief Complaint: Psych/Social Disorder Stated Complaint: DEPRESSION,ANXIETY Nursing Triage Note: Pt to triage with c/o anxiety/depression x 1 wk. Pt states he has recently became homeless which has caused these feelings. Pt states he has a Hx of depression and anxiety but stop taking meds for it about 1.5 yrs ago. Pt is not suicidal or have intent to harm self/others. Pt states he follows with [facility] but hasn't seen them for this issue yet. History of Present Illness Date Seen by Provider: Jun 21, 2020 Time Seen by Provider: 06:38 Initial Comments 60-year-old male presents with complaints of anxiety depression. Patient has had on and off symptoms for quite some time. Reports about 1 2:30 years ago he quit taking his medications. Patient states he is diagnosed with bipolar in the past. That over the last week he's had worsening anxiety and depression. He reports that he's currently homeless and that's caused additional stressors to worsen his anxiety and depression. Patient denies any thoughts of hurting himself or others. Patient does follow with [facility] but has not followed up with them concerning this. Allergies and Home Medications Allergies Coded Allergies: morphine (Verified Allergy, Mild, 07/17/19) pt states it makes him vomit Home Medications Albuterol Sulfate 2.5 Mg/3 Ml Vial.neb, 2.5 MG INH Q4H PRN for WHEEZING Prescribed by: ELSA JUNE on 01/31/20 1229 Aspirin 81 Mg Tablet.dr, 81 MG PO DAILY Prescribed by: ALVARO SMYTH on 08/23/19 0846 Atorvastatin Calcium 10 Mg Tablet, 10 MG PO DAILY Prescribed by: ALVARO SMYTH on 08/23/19 0846 Clopidogrel Bisulfate 75 Mg Tablet, 75 MG PO DAILY Prescribed by: ALVARO SMYTH on 08/23/19 0846 Ipratropium/Albuterol Sulfate 3 Ml Ampul.neb, 3 ML IH Q6H Prescribed by: ELSA JUNE on 01/31/20 1229 Metoprolol Succinate 25 Mg Tab.er.24h, 25 MG PO DAILY Prescribed by: ALVARO SMYTH on 08/23/19 0846 Prednisone 20 Mg Tab, 40 MG PO DAILY Prescribed by: ELSA JUNE on 01/31/20 1230 Patient Home Medication List Home Medication List Reviewed: Yes Review of Systems Constitutional: No chills, No fever Respiratory: No cough, No short of breath Cardiovascular: No chest pain, No palpitations Gastrointestinal: No abdominal pain, No diarrhea, No nausea, No vomiting Musculoskeletal: no symptoms reported Skin: no symptoms reported Psychiatric/Neurological: Anxiety, Depressed Past Mpjnwlt-Ugvizg-Gbcate Hx Past Med/Social Hx: Reviewed Nursing Past Med/Soc Hx Patient Social History Alcohol Use: Denies Use Recreational Drug Use: No Drug of Choice: cannabis- daily Smoking Status: Never a Smoker Type Used: Electronic/Vapor 2nd Hand Smoke Exposure: No Recent Foreign Travel: No Contact w/Someone Who Travel: No Recent Infectious Disease Expo: No Recent Hopitalizations: No Immunizations Up To Date Tetanus Booster (TDap): Unknown Past Medical History Surgeries: Yes Appendectomy, Coronary Stent Respiratory: No Cardiac: Yes Coronary Artery Disease, Heart Attack, Hypertension Neurological: No Genitourinary: No Gastrointestinal: No Musculoskeletal: No Endocrine: No HEENT: No Cancer: No Did You Recieve Any Treatments: No Psychosocial: No Integumentary: No Blood Disorders: No Adverse Reaction/Blood Tranf: No Family Medical History Heart Disease Physical Exam Vital Signs - First Documented 06/21/20 06:23 Temp 36.7 Pulse 96 Resp 16 B/P (MAP) 159/90 (113) Pulse Ox 98 O2 Delivery Room Air Capillary Refill : Less Than 3 Seconds Height, Weight, BMI Height: 5'9.00" Weight: 150lbs. oz. 68.640726gp; 21.00 BMI Method:Stated General Appearance: WD/WN, no apparent distress Respiratory: chest non-tender, lungs clear, normal breath sounds Cardiovascular: normal peripheral pulses, regular rate, rhythm Gastrointestinal: non tender, soft Extremities: normal range of motion Neurologic/Psychiatric: alert, oriented x 3, depressed affect Appearance/Memory: appropriate appearance, appropriate insight Behavior/Eye Contact: cooperative, normal speech Thoughts/Hallucinations: no apparent hallucination; No auditory hallucinations, No delusions, No paranoid Skin: normal color, warm/dry Progress/Results/Core Measures Results/Orders Vital Signs/I&O 06/21/20 06:23 Temp 36.7 Pulse 96 Resp 16 B/P (MAP) 159/90 (113) Pulse Ox 98 O2 Delivery Room Air Blood Pressure Mean: 113 Progress Progress Note : Time: 06:40 Progress Note Discussed with patient different treatment options. At this time I will give him small dose of hydroxyzine and along with some Paxil prior to discharge. I will prescribe him some Paxil since it on the $4 list. Patient is stable and will be discharged. He feels that he just wants to your back started on something. He will follow-up with [facility] for further management. Departure Impression Primary Impression: Reactive depression (situational) Disposition: HOME, SELF-CARE Condition: Stable Departure-Patient Inst. Referrals: [facility]/ (PCP) Primary Care Physician DAJA WARD (Family) Primary Care Physician Patient Instructions: Depression, Adult (DC), When You Have Depression and Another Health Problem, Suicide Prevention, Medicines for Depression Scripts Paroxetine HCl (Paxil) 10 Mg Tablet 10 MG PO DAILY for 30 Days, #30 TAB Prov: CHANTELLE LINTON DO 06/21/20 Hydroxyzine HCl (Hydroxyzine HCl) 50 Mg Tablet 50 MG PO Q8H PRN for ANXIETY, #20 TAB Prov: CHANTELLE LINTON DO 06/21/20 CHANTELLE LINTON DO Jun 21, 2020 06:42
[2020-06-21] MEDS ORDERED: PARoxetine 10 MG (PAXIL) TAB PO ONE (06:45)
[2020-06-21] MEDS ORDERED: hydrOXYzine (VISTARIL/ATARAX) 25 MG capsule/tablet PO ONE (06:45)
[2020-06-21] MEDS ORDERED: PARO10TA81 PO (06:47)
[2020-06-21] MEDS ORDERED: HYDR50TA76 PO (06:47)
== END 2020-06-21 06:58 | disposition home or self-care (01) ==
LOC: EDUNIT# 06:02 → ER 06:06
DX: F32.9 Major depressive disorder, single episode, unspecified (principal); I10 Essential (primary) hypertension; F41.9 Anxiety disorder, unspecified; I25.10 Atherosclerotic heart disease of native coronary artery without angina pectoris; I25.2 Old myocardial infarction; Z95.5 Presence of coronary angioplasty implant and graft; Z88.5 Allergy status to narcotic agent; Z91.14 Patient's other noncompliance with medication regimen; Z79.82 Long term (current) use of aspirin; Z79.02 Long term (current) use of antithrombotics/antiplatelets; Z79.52 Long term (current) use of systemic steroids; Z82.49 Family history of ischemic heart disease and other diseases of the circulatory system
CPT/HCPCS: 99283